=== PATIENT | female | born 1940 ===

== ENCOUNTER 2018-02-16 21:30 | Inpatient (IN) | payer MEDICARE, MEDICAID ==
--- NOTE | 2018-02-16 21:32 | C.PDOC ---
History Of Present Illness As per family, patient got short of breath while sitting on the couch. No chest pain or palpitations. Speaking in 5-6 word sentences. No f/c/n/v. Tolerating po. Time Seen by Provider: 02/16/18 21:31 History Per: Patient, EMS History/Exam Limitations: no limitations Onset/Duration Of Symptoms: Mins Current Symptoms Are (Timing): Still Present Initiating Event: Other Current Respiratory Medications: See Home Med List Severity: Severe Pain Scale Rating Of: 8 Associated Symptoms: denies: Fever, Chills Reports Recently: Treated By A Physician Recent travel outside of the [place]: No Additional History Per: Family Past Medical History Reviewed: Historical Data, Nursing Documentation, Vital Signs Family History: States: No Known Family Hx Review Of Systems Constitutional: Negative for: Fever, Chills Eyes: Negative for: Vision Change ENT: Negative for: Throat Pain Cardiovascular: Negative for: Chest Pain Respiratory: Positive for: Shortness of Breath Gastrointestinal: Negative for: Nausea, Vomiting Genitourinary: Negative for: Dysuria Musculoskeletal: Negative for: Back Pain Skin: Negative for: Rash Neurological: Negative for: Weakness Psych: Negative for: Anxiety Physical Exam - Physical Exam Appears: Non-toxic Skin: Warm, Dry Head: Atraumatic Eye(s): bilateral: Normal Inspection Oral Mucosa: Moist Neck: Supple Chest: Symmetrical Cardiovascular: Rhythm Regular Respiratory: Rales, Rhonchi Gastrointestinal/Abdominal: Soft, No Tenderness, No Distention Back: Normal Inspection Extremity: Normal ROM, Pedal Edema Extremity: Bilateral: Atraumatic, Normal ROM Pulses: Left Dorsalis Pedis: Normal, Right Dorsalis Pedis: Normal Neurological/Psych: Oriented x3, Normal Speech, Normal Cognition Gait: Steady ED Course And Treatment - Laboratory Results Result Diagrams: 02/16/18 21:44 02/16/18 22:26 ECG: Interpreted By Me, Viewed By Me ECG Rhythm: Sinus Rhythm (106), L BBB, Nonspecific Changes O2 Sat by Pulse Oximetry: 88 Pulse Ox Interpretation: Abnormal (placed on 100% NRM) - Radiology CXR: Interpreted by Me, Viewed By Me CXR Interpretation: Yes: Infiltrates (rll), Other (chf). No: Fracture, Cardiomegaly Critical Care Time - Critical Care Note Total Time (in mins): 30 Documented critical care: time excludes all time spent performing seperately billable procedures. Disposition Discussed With DrMarguerite: Gabriella Gonzalez Comment: acceptd the pt on his service and took over the care at 11:43 PM Doctor Will See Patient In The: Hospital Counseled Patient/Family Regarding: Studies Performed, Diagnosis - Disposition Referrals: Izzy Le MD [Medical Doctor] - Disposition: HOSPITALIZED Disposition Time: 21:32 Condition: GUARDED - POA Present On Arrival: Poor Glycemic Control - Clinical Impression Clinical Impression: Dyspnea, Pneumonia, Renal insufficiency Decision To Admit - Pt Status Changed To: Hospital Disposition Of: Inpatient - Admit Certification Admit to Inpatient:: After my assessment, the patient will require hospitalization for at least two midnights. This is because of the severity of symptoms shown, intensity of services needed, and/or the medical risk in this patient being treated as an outpatient. - InPatient: Physician Admission Certification: I certify that this patient requires 2 or more midnights of care for the following reason:: After my assessment, the patient will require hospitalization for at least two midnights. This is because of the severity of symptoms shown, intensity of services needed, and/or the medical risk in this patient being treated as an outpatient. - . Bed Request Type: Telemetry Admitting Physician: Gabriella Gonzalez Patient Diagnosis: Dyspnea, Pneumonia, Renal insufficiency
[2018-02-16] MEDS ORDERED: Albuterol-Ipratrop 3 mg / 0.5 (3 ml) UD ONE ×2 (21:35→22:09)
[2018-02-16] MEDS ORDERED: Piperacillin/Tazobact 3.375 gm 100 ML IVPB STA (21:49)
[2018-02-16 21:51] LABS: BASO # 0.1 K/uL (0.0-0.2); BASO % 0.5 % (0.0-2.0); EOS # 0.2 K/uL (0.0-0.7); EOS % 1.4 % (0.0-4.0); HEMOGLOBIN 12.2 g/dL (11.0-16.0); LYMPH # 6.5 K/uL (1.0-4.3); MEAN CELL VOLUME 83.4 fL (81.0-99.0); MEAN CORPUSCULAR HEMOGLOBIN 26.4 pg (27.0-31.0); MEAN CORPUSCULAR HGB CONC 31.6 g/dL (33.0-37.0); MEAN PLATELET VOLUME 9.8 fL (7.2-11.7); MONO % 6.3 % (0.0-10.0); NEUT # 8.4 K/uL (1.8-7.0); NEUT % 51.8 % (50.0-75.0); NRBC % 0.2 % (0.0-2.0); RBC 4.61 Mil/uL (3.80-5.20); RED CELL DISTRIBUTION WIDTH 14.3 % (11.5-14.5); WHITE BLOOD COUNT 16.3 K/uL (4.8-10.8)
[2018-02-16] MEDS ORDERED: Piperacillin/Tazobact 3.375 gm 100 ML IVPB ONE (21:59)
[2018-02-16 22:00] LABS: PROTHROMBIN TIME 10.6 SECONDS (9.7-12.2)
[2018-02-16] MEDS: Albuterol-Ipratrop 3 mg / 0.5 (3 ml) UD IH SCH (22:10)
[2018-02-16 22:12] LABS: ABG ALLEN TEST PO; ARTERIAL BLOOD GAS HCO3 22.6 mmol/L (21-28); ARTERIAL BLOOD GAS O2 SAT 98.6 % (95-98); ARTERIAL BLOOD GAS PCO2 42 mm/Hg (35-45); ARTERIAL BLOOD GAS PH 7.34 (7.35-7.45); ARTERIAL BLOOD GAS PO2 100 mm/Hg (80-100)
[2018-02-16 22:48] LABS: ALB/GLOB RATIO 1.2 (1.0-2.1); ALBUMIN 3.8 g/dL (3.5-5.0); CALCIUM 8.5 mg/dl (8.6-10.4)
[2018-02-16 22:57] LABS: TROPONIN I 0.047 ng/mL (0.00-0.120)
[2018-02-16] MEDS ORDERED: Iodixanol 320 MG/ML 100 ML BOTTLE IV ONE (23:00)
[2018-02-16 23:07] LABS: SQUAMOUS EPITHIAL < 1 /hpf (0-5); URINE BACTERIA OCC (<OCC); URINE BILIRUBIN NEGATIVE (NEGATIVE); URINE BLOOD 1+ (NEGATIVE); URINE CLARITY Clear (Clear); URINE COLOR Straw (YELLOW); URINE GLUCOSE (UA) 1+ mg/dL (Normal); URINE LEUKOCYTE ESTERASE TRACE Leu/uL (Negative); URINE PROTEIN 3+ mg/dL (NEGATIVE); URINE UROBILINOGEN NORMAL mg/dL (0.2-1.0)
[2018-02-16] MEDS ORDERED: Enoxaparin 40 mg Syringe SC STA (23:26)
[2018-02-16] MEDS ORDERED: Enoxaparin 80 mg Syringe ONE (23:40)
[2018-02-17] MEDS: Albuterol-Ipratrop 3 mg / 0.5 (3 ml) UD INH SCH ×4 (07:40→19:51)
--- NOTE | 2018-02-17 08:49 | RAD ---
Date of service: 02/16/2018 HISTORY: SOB COMPARISON: None available. FINDINGS: LUNGS: Patchy infiltrates identified in the right base, borderline at the left. PLEURA: Trace right pleural effusion identified. None is seen the left. No pneumothorax bilaterally. CARDIOVASCULAR: No aortic atherosclerotic calcification present. Cardiomegaly is identified. No definite pulmonary vascular congestion. OSSEOUS STRUCTURES: No significant abnormalities. VISUALIZED UPPER ABDOMEN: Normal. OTHER FINDINGS: None. IMPRESSION: Limited patchy infiltrate right base, potentially also the left. Trace right pleural effusion. Cardiomegaly. No pulmonary vascular congestion.
[2018-02-17] MEDS: MethylPREDNISolone 40 mg Vial IVP SCH ×3 (09:30→21:47)
[2018-02-17] MEDS ORDERED: Enoxaparin 40 mg Syringe SC SCH (10:00)
[2018-02-17] MEDS: Azithromycin 500 MG in Sodium Chloride 0.9% 250 ML IVPB SCH (10:43)
--- NOTE | 2018-02-17 11:22 | CT ---
Date of service: 02/16/2018 PROCEDURE: CT Chest without contrast HISTORY: sob COMPARISON: Portable chest 02/16/2018 9:44 p.m.. TECHNIQUE: Contiguous axial images were obtained through the chest without intravenous contrast enhancement. Sagittal and coronal reconstructions were performed. Radiation dose: Total exam DLP = 598.26 mGy-cm. This CT exam was performed using one or more of the following dose reduction techniques: Automated exposure control, adjustment of the mA and/or kV according to patient size, and/or use of iterative reconstruction technique. FINDINGS: LUNGS: Respiratory motion degrades quality of the examination. Septal markings appears somewhat increased bilaterally without definitive alveolitis. Limited bilateral basilar dependent atelectasis identified. Limited linear atelectasis or fibrosis left lower lobe. There is a 3.8 mm nodule is identified at the right lower lobe in image 68 series 3, noncalcified and solid appearing. No additional definitive nodule or mass. Central airways appear clear. MEDIASTINUM: Cardiomegaly is identified. No pericardial effusion. Calcific coronary artery atherosclerosis identified. Main pulmonary artery unremarkable. Mild pulmonary vascular congestion is suggested. [id number] mediastinal lymphadenopathy is appreciated, seen predominate in the paratracheal space including the midline inferior paratracheal space with a lymph node measuring 1.2 x 2.0 cm PLEURA: Mild right and minimal left pleural effusions are identified. BONES: Gross multifocal cervicothoracic spondylosis appreciate including numerous syndesmophytes at the inferior cervical spine and entire thoracic spine which could reflect ankylosing spondylosis or DISH. Potential limited anterior wedge compression fractures at T10 and T11, age indeterminate. No focal destructive bony lesion appreciable. UPPER ABDOMEN: Grossly unremarkable. OTHER FINDINGS: None. IMPRESSION: Findings likely reflect mild CHF including slight increase in septal markings in the bilateral lung calvo, mild right and trace left pleural effusions. Limited bilateral basilar dependent atelectasis. Limited linear atelectasis or fibrosis left lower lobe. 3.8 mm solitary nodule right lower lobe requires follow-up low-dose noncontrast chest CT in 12 months demonstrate stability if not already proven benign. Exuberant cervicothoracic spondylosis, possible ankylosing spondylosis or DISH. Preliminary report provided by [facility], chest CT without contrast 02/16/2018 11:14 p.m.. Findings reviewed and discussed with Nurse Garcia with written down and read back verification 02/17/2018 11:10 a.m..
[2018-02-17] MEDS: Pantoprazole 40 mg EC Tab PO SCH (13:32)
--- NOTE | 2018-02-17 20:46 | CP.PCM.HP ---
Past Patient History - Infectious Disease Hx of Infectious Diseases: None - Past Medical History & Family History Past Medical History?: Yes - Past Social History Smoking Status: Never Smoked - CARDIAC Hx Hypertension: Yes - HEENT Hx Blind: Yes (Left Eye) Hx Cataracts: Yes (Left) - RENAL Hx Kidney Stones: Yes Other/Comment: "kidney problems" as per daughter - ENDOCRINE/METABOLIC Hx Diabetes Mellitus Type 2: Yes - MUSCULOSKELETAL/RHEUMATOLOGICAL Hx Arthritis: Yes Hx Falls: No - PSYCHIATRIC Hx Substance Use: No - SURGICAL HISTORY Hx Surgeries: Yes Other/Comment: "ear sx" - ANESTHESIA Hx Anesthesia: Yes Hx Anesthesia Reactions: No Hx Malignant Hyperthermia: No Has any member of the family had a problem w/ anesthesia?: No Meds Allergies/Adverse Reactions: Allergies Allergy/AdvReac Type Severity Reaction Status Date / Time No Known Allergies Allergy Unverified 02/16/18 21:35 Physical Exam - Constitutional Appears: Well - Head Exam Head Exam: ATRAUMATIC, NORMAL INSPECTION, NORMOCEPHALIC - Eye Exam Eye Exam: EOMI, Normal appearance, PERRL Pupil Exam: NORMAL ACCOMODATION, PERRL - ENT Exam ENT Exam: Mucous Membranes Moist, Normal Exam - Neck Exam Neck exam: Positive for: Normal Inspection - Respiratory Exam Respiratory Exam: Decreased Breath Sounds - Cardiovascular Exam Cardiovascular Exam: REGULAR RHYTHM, +S1, +S2 - GI/Abdominal Exam GI & Abdominal Exam: Diminished Bowel Sounds, Soft - Rectal Exam Rectal Exam: Deferred Results - Vital Signs Recent Vital Signs: Last Vital Signs Temp 98.1 F 02/17/18 15:20 Pulse 85 02/17/18 20:36 Resp 20 02/17/18 15:20 BP 149/72 02/17/18 19:27 Pulse Ox 98 02/17/18 15:20 - Labs Result Diagrams: 02/16/18 21:44 02/16/18 22:26 Labs: Laboratory Results - last 24 hr 02/16/18 02/16/18 02/16/18 21:41 21:44 21:44 WBC 16.3 H RBC 4.61 Hgb 12.2 Hct 38.4 MCV 83.4 MCH 26.4 L MCHC 31.6 L RDW 14.3 Plt Count 271 MPV 9.8 Neut % (Auto) 51.8 Lymph % (Auto) 40.0 [place] % (Auto) 6.3 Eos % (Auto) 1.4 Baso % (Auto) 0.5 Neut # (Auto) 8.4 H Lymph # (Auto) 6.5 H [place] # (Auto) 1.0 H Eos # (Auto) 0.2 Baso # (Auto) 0.1 PT 10.6 INR 1.0 APTT 40 H D-Dimer, Quantitative Puncture Site pCO2 pO2 HCO3 ABG pH ABG Total CO2 ABG O2 Saturation ABG Base Excess Chi Test ABG Potassium A-a O2 Difference Respiratory Index Sodium Chloride Glucose Lactate FiO2 Potassium Carbon Dioxide Anion Gap BUN Creatinine Est GFR ( Amer) Est GFR (Non-Af Amer) POC Glucose (mg/dL) 185 H Random Glucose Calcium Total Bilirubin AST ALT Alkaline Phosphatase Troponin I NT-Pro-B Natriuret Pep Total Protein Albumin Globulin Albumin/Globulin Ratio Arterial Blood Potassium Urine Color Urine Clarity Urine pH Ur Specific [place] Urine Protein Urine Glucose (UA) Urine Ketones Urine Blood Urine Nitrate Urine Bilirubin Urine Urobilinogen Ur Leukocyte Esterase Urine WBC (Auto) Urine RBC (Auto) Ur Squamous Epith Cells Urine Bacteria 02/16/18 02/16/18 02/16/18 22:09 22:14 22:26 WBC RBC Hgb Hct MCV MCH MCHC RDW Plt Count MPV Neut % (Auto) Lymph % (Auto) [place] % (Auto) Eos % (Auto) Baso % (Auto) Neut # (Auto) Lymph # (Auto) [place] # (Auto) Eos # (Auto) Baso # (Auto) PT INR APTT D-Dimer, Quantitative 338 H Puncture Site Rr pCO2 42 pO2 100 HCO3 22.6 ABG pH 7.34 L ABG Total CO2 24.0 ABG O2 Saturation 98.6 H ABG Base Excess -3.0 L Chi Test Po ABG Potassium 3.4 L A-a O2 Difference 561.0 Respiratory Index 5.6 Sodium 140.0 136 Chloride 111.0 H 106 Glucose 174 H Lactate 0.7 FiO2 100.0 Potassium 4.0 Carbon Dioxide 22 Anion Gap 13 BUN 30 H Creatinine 2.5 H Est GFR ( Amer) 23 Est GFR (Non-Af Amer) 19 POC Glucose (mg/dL) Random Glucose 188 H Calcium 8.5 L Total Bilirubin 0.2 AST 33 ALT 35 Alkaline Phosphatase 106 Troponin I 0.0470 NT-Pro-B Natriuret Pep 2390 H Total Protein 7.1 Albumin 3.8 Globulin 3.3 Albumin/Globulin Ratio 1.2 Arterial Blood Potassium 3.4 L Urine Color Urine Clarity Urine pH Ur Specific [place] Urine Protein Urine Glucose (UA) Urine Ketones Urine Blood Urine Nitrate Urine Bilirubin Urine Urobilinogen Ur Leukocyte Esterase Urine WBC (Auto) Urine RBC (Auto) Ur Squamous Epith Cells Urine Bacteria 02/16/18 02/17/18 23:58 16:50 WBC RBC Hgb Hct MCV MCH MCHC RDW Plt Count MPV Neut % (Auto) Lymph % (Auto) [place] % (Auto) Eos % (Auto) Baso % (Auto) Neut # (Auto) Lymph # (Auto) [place] # (Auto) Eos # (Auto) Baso # (Auto) PT INR APTT D-Dimer, Quantitative Puncture Site pCO2 pO2 HCO3 ABG pH ABG Total CO2 ABG O2 Saturation ABG Base Excess Chi Test ABG Potassium A-a O2 Difference Respiratory Index Sodium Chloride Glucose Lactate FiO2 Potassium Carbon Dioxide Anion Gap BUN Creatinine Est GFR ( Amer) Est GFR (Non-Af Amer) POC Glucose (mg/dL) Random Glucose Calcium Total Bilirubin AST ALT Alkaline Phosphatase Troponin I 0.0590 NT-Pro-B Natriuret Pep Total Protein Albumin Globulin Albumin/Globulin Ratio Arterial Blood Potassium Urine Color Straw Urine Clarity Clear Urine pH 6.0 Ur Specific [place] 1.008 Urine Protein 3+ H Urine Glucose (UA) 1+ Urine Ketones Negative Urine Blood 1+ H Urine Nitrate Negative Urine Bilirubin Negative Urine Urobilinogen Normal Ur Leukocyte Esterase Trace Urine WBC (Auto) 4 Urine RBC (Auto) 5 H Ur Squamous Epith Cells < 1 Urine Bacteria Occ H
[2018-02-17] MEDS ORDERED: (Novolog) Insulin Aspart, Recombinant 100 u/ml 10 ml vial SC STA (21:19)
[2018-02-17] MEDS: (Lantus) Insulin Glargine, Recombinant SC SCH (21:45)
[2018-02-17] MEDS: (Novolog) Insulin Aspart, Recombinant 100 u/ml 10 ml vial SC SCH (21:51)
--- NOTE | 2018-02-17 22:07 | CON ---
DATE: 02/17/2018 CARDIOLOGY CONSULTATION REASON FOR CONSULTATION: Shortness of breath and productive cough. HISTORY OF PRESENT ILLNESS: The history was obtained from the patient's daughter who was sitting at the bedside. The patient is a 77-year-old female who has no significant past medical history except for diabetes mellitus and is being followed by group of physicians locally in [place]. No known prior cardiac histories. The patient presents because of shortness of breath and productive cough as well as nausea. The patient also noted significant lower extremity swelling and pain. The patient denies any retrosternal chest pain. SOCIAL HISTORY: The patient is nonsmoker. She lives by herself. MEDICATIONS: Zithromax 500 mg intravenously daily, Rocephin 1 g intravenously daily, albuterol inhaler every 4 hours p.r.n., Lasix 40 mg intravenously twice a day, Lovenox 40 mg subcutaneously daily, Singulair 10 mg once a day, Solu-Medrol 40 mg intravenously every 8 hours, and Protonix 40 mg p.o. daily. PHYSICAL EXAMINATION: GENERAL: The patient is an elderly female who does not appear to be in acute distress. VITAL SIGNS: Blood pressure 142/70, heart rate 86, temperature 98.6, and respirations 20. HEENT: Normocephalic. CHEST: Absent breath sounds over the bases with bilateral rhonchi. HEART: S1 and S2 are regular. ABDOMEN: Soft. EXTREMITIES: 2+ pitting edema. No calf tenderness. LABORATORY DATA: Today's SMA-7: Sodium 136, potassium 4, chloride 106, CO2 of 22, glucose 188, BUN 30, creatinine 2.5. ProBNP 2390. D-Dimer is 338. CBC: WBC 16.3, hemoglobin 12.2, hematocrit 38.4, and platelet count 271,000. Chest CT scan revealed findings likely reflected of mild CHF, a 3.8-mm solitary nodule in right upper lobe, possible ankylosing spondylosis. EKG revealed sinus tachycardia at the rate of 106, left bundle branch block. Chest x-ray revealed cardiomegaly with bilateral lower lobe infiltrate, possible right lower lobe consolidation, and mild CHF. One set of troponin 0.047. ASSESSMENT: 1. Exacerbation of congestive heart failure. 2. Consider bilateral pneumonia. 3. Chronic renal insufficiency. 4. Rule out deep vein thrombosis of either lower extremities. 5. Uncontrolled diabetes mellitus. RECOMMENDATIONS: Continue current IV Rocephin and IV Zithromax. Continue Lasix 40 mg intravenously twice a day, Solu-Medrol 40 mg intravenously every 8 hours. Start aspirin 81 mg once a day. Obtain one more set of troponin. Repeat 12-lead EKG and schedule the patient for echocardiogram. Obtain venous Doppler of the lower extremities. Start subcutaneous heparin 5000 units every 8 hours. Ryan Vidal MD
[2018-02-18] MEDS: Albuterol-Ipratrop 3 mg / 0.5 (3 ml) UD INH SCH ×6 (00:25→20:46)
[2018-02-18] MEDS ORDERED: (Novolin R) Insulin Human Regular 100 units/ml vial SC ONE (02:25)
[2018-02-18] MEDS: MethylPREDNISolone 40 mg Vial IVP SCH ×3 (05:43→21:44)
[2018-02-18] MEDS ORDERED: (Novolog) Insulin Aspart, Recombinant 100 u/ml 10 ml vial SC STA (06:41)
[2018-02-18 07:26] LABS: HEMOGLOBIN 10.8 g/dL (11.0-16.0); MEAN CORPUSCULAR HEMOGLOBIN 26.9 pg (27.0-31.0); MEAN CORPUSCULAR HGB CONC 32.4 g/dL (33.0-37.0); RBC 4.01 Mil/uL (3.80-5.20); RED CELL DISTRIBUTION WIDTH 14.1 % (11.5-14.5); WHITE BLOOD COUNT 11.9 K/uL (4.8-10.8)
[2018-02-18] MEDS: (Novolog) Insulin Aspart, Recombinant 100 u/ml 10 ml vial SC SCH ×4 (07:30→21:45)
[2018-02-18 08:14] LABS: ALBUMIN 3.3 g/dL (3.5-5.0); CALCIUM 8.2 mg/dl (8.6-10.4)
[2018-02-18] MEDS: Azithromycin 500 MG in Sodium Chloride 0.9% 250 ML IVPB SCH (09:51)
[2018-02-18] MEDS: Pantoprazole 40 mg EC Tab PO SCH (09:53)
[2018-02-18] MEDS: (Lantus) Insulin Glargine, Recombinant SC SCH ×2 (09:54→21:45)
--- NOTE | 2018-02-18 17:52 | CARD ---
APPROVED REPORT Date of service: 02/16/2018 EKG Measurement Heart [id number] <Conclusion> Sinus tachycardia Left axis deviation Left bundle branch block Abnormal ECG
--- NOTE | 2018-02-18 18:03 | PN ---
DATE: 02/18/2018 SUBJECTIVE: The patient is still mildly short or breath. Denied any chest pain. PHYSICAL EXAMINATION: VITAL SIGNS: Blood pressure 118/53, heart rate 103, temperature 97.7, respirations 20. HEENT: Normocephalic. CHEST: Absent breath sounds over the bases. HEART: S1 and S2, regular. ABDOMEN: Soft. EXTREMITIES: 1+ pitting edema. LABORATORY DATA: Today's BUN and creatinine are 38 and 2.8 respectively, glucose 142. Today's hemoglobin and hematocrit, 10.8 and 33.2. White count 11.9 and platelet count 228,000. EKG reveals sinus tachycardia with left bundle branch block. Two sets of troponins are not elevated. ASSESSMENT: 1. Suspect congestive heart failure. 2. Bilateral pneumonia. 3. Chronic renal insufficiency. RECOMMENDATIONS: Continue current intravenous Celexa and intravenous Rocephin. Continue Cozaar at 50 mg once a day, Crestor at 5 mg once a day. Continue heparin 5000 units every 8 hours, Lasix 40 mg intravenously twice a day, Norvasc at 10 mg once a day, Solu-Medrol 40 mg intravenously every 8 hours. I will review the echocardiographic study performed today. Ryan Vidal MD
--- NOTE | 2018-02-18 19:37 | CARD ---
APPROVED REPORT Date of service: 02/17/2018 EKG Measurement Heart [id number] <Conclusion> Sinus tachycardia Nonspecific intraventricular block T wave abnormality, consider lateral ischemia Abnormal ECG
--- NOTE | 2018-02-18 20:19 | CARD ---
APPROVED REPORT Date of service: 02/18/2018 EXAM: Two-dimensional and M-mode echocardiogram with Doppler and color Doppler. INDICATION Dyspnea Congestive Heart Failure RISK FACTORS Hypertension Diabetes 2D DIMENSIONS IVSd1.4 (0.7-1.1cm)Aortic Root (2D)2.4 (2.0-3.7cm) LVDd3.8 (3.9-5.9cm)PWd1.2 (0.7-1.1cm) LA Gcfaae83 (18-58mL)LVDs2.4 (2.5-4.0cm) FS (%) 37.6 %LVEF (%)68.5 (>50%) LVEF (Rossi's)62.21 %IVC0.00 cm M-Mode DIMENSIONS Left Atrium (MM)4.16 (2.5-4.0cm)IVSd0.73 (0.7-1.1cm) Aortic Root2.64 (2.2-3.7cm)LVDd5.13 (4.0-5.6cm) Aortic Cusp Exc.1.53 (1.5-2.0cm)PWd0.79 (0.7-1.1cm) FS (%) 47 %LVDs2.70 (2.0-3.8cm) LVEF (%)63 (>50%) Aortic Valve LVOT Peak Ddcrzozx873.8cm/sLVOT VTI27.49cm Mitral Valve MV E Hoxdcbcb227.3cm/sMV E Peak Gr.14mmHgMV A Iononttm614.3cm/s MV E Mean Gr.7mmHgE/A ratio0.9 TDI Lateral E' Peak V7.19cm/sMedial E' Peak V4.09cm/sE/Lateral E'18.0 E/Medial E'31.6 Tricuspid Valve TR Peak Jlwgmixy890hb/sTR Peak Gr.46rzWgDFTJ19oiSv LEFT VENTRICLE The left ventricle is normal size. There is moderate concentric left ventricular hypertrophy. The left ventricular function is normal. The left ventricular ejection fraction is within the normal range. 62% No regional wall motion abnormalities noted. The left ventricular diastolic function is incoclusive. No left ventricle thrombus noted on this study. There is no ventricular septal defect visualized. There is no left ventricular aneurysm. There is no mass noted in the left ventricle. RIGHT VENTRICLE The right ventricle is normal size. There is normal right ventricular wall thickness. The right ventricular systolic function is normal. ATRIA The left atrium size is normal. The right atrium size is normal. The interatrial septum is intact with no evidence for an atrial septal defect. AORTIC VALVE The aortic valve is normal in structure and function. No aortic regurgitation is present. There is no aortic valvular stenosis. There is no aortic valvular vegetation. MITRAL VALVE The mitral valve is normal in structure and function. Moderatw annular calcification. There is no evidence of mitral valve prolapse. There is no mitral valve stenosis. There is no mitral valve regurgitation noted. TRICUSPID VALVE The tricuspid valve is normal in structure and function. There is no tricuspid valve regurgitation noted. There is mild tricuspid valve prolapse or vegetation. Estimated peak pulmonary artery pressure is 65 mm HG. There is no tricuspid valve stenosis. PULMONIC VALVE The pulmonary valve is normal in structure and function. There is no pulmonic valvular regurgitation. There is no pulmonic valvular stenosis. GREAT VESSELS The aortic root is normal in size. The ascending aorta is normal in size. The pulmonary artery is normal. The IVC is dilated and collapses < 50% with inspiration. PERICARDIAL EFFUSION The pericardium appears normal. There is no pleural effusion. <Conclusion> The left ventricular function is normal. The left ventricular ejection fraction is within the normal range. 62% There is moderate concentric left ventricular hypertrophy. Severe pulmonary HTN. Otherwise normal Doppler.
--- NOTE | 2018-02-18 21:05 | CP.PCM.PN ---
Subjective - Date & Time of Evaluation Date of Evaluation: 02/18/18 Time of Evaluation: 12:00 - Subjective Subjective: clinically same Objective - Vital Signs/Intake and Output Vital Signs (last 24 hours): Temp Pulse Resp BP Pulse Ox 97.3 F L 92 H 20 130/78 97 02/18/18 15:40 02/18/18 15:46 02/18/18 15:40 02/18/18 17:49 02/18/18 15:40 Intake and Output: 02/18/18 02/19/18 18:59 06:59 Intake Total 450 Balance 450 - Medications Medications: Current Medications Albuterol/Ipratropium (Duoneb 3 Mg/0.5 Mg (3 Ml) Ud) 3 ml INH RQ4 [facility] Last Admin: 02/18/18 20:46 Dose: 3 ml Amlodipine Besylate (Norvasc) 10 mg PO DAILY [facility] Last Admin: 02/18/18 09:52 Dose: 10 mg Ergocalciferol (Drisdol 50,000 Intl Units Cap) 1 cap PO QWK [facility] Furosemide (Lasix) 40 mg IVP BID [facility] Last Admin: 02/18/18 17:49 Dose: 40 mg Glimepiride (Amaryl) 4 mg PO BID [facility] Last Admin: 02/18/18 17:50 Dose: 4 mg Heparin Sodium (Porcine) (Heparin) 5,000 units SC Q8 [facility] Last Admin: 02/18/18 13:39 Dose: 5,000 units Hydrochlorothiazide (Microzide) 12.5 mg PO DAILY [facility] Last Admin: 02/18/18 09:52 Dose: 12.5 mg Azithromycin 500 mg/ Sodium (Chloride) 250 mls @ 250 mls/hr IVPB DAILY [facility]; Protocol Last Admin: 02/18/18 09:51 Dose: 250 mls/hr Ceftriaxone Sodium 1 gm/ (Sodium Chloride) 100 mls @ 100 mls/hr IVPB Q24H [facility]; Protocol Last Admin: 02/18/18 12:24 Dose: 100 mls/hr Insulin Aspart (Novolog) 0 unit SC ACHS [facility]; Protocol Last Admin: 02/18/18 17:00 Dose: 4 unit Insulin Glargine (Lantus) 25 unit SC DAILY [facility] Last Admin: 02/18/18 09:54 Dose: 25 units Insulin Glargine (Lantus) 60 unit SC [facility] Last Admin: 02/17/18 21:45 Dose: 60 units Losartan Potassium (Cozaar) 50 mg PO DAILY [facility] Last Admin: 02/18/18 09:52 Dose: 50 mg Methylprednisolone (Solu-Medrol) 40 mg IVP Q8 [facility] Last Admin: 02/18/18 13:38 Dose: 40 mg Montelukast Sodium (Singulair) 10 mg PO [facility] Last Admin: 02/17/18 21:46 Dose: 10 mg Pantoprazole Sodium (Protonix Ec Tab) 40 mg PO DAILY [facility] Last Admin: 02/18/18 09:53 Dose: 40 mg Pneumococcal Polyvalent Vaccine (Pneumovax 23 Vaccine) 0.5 ml IM .ONCE ONE Stop: 02/19/18 11:01 Rosuvastatin Calcium (Crestor) 5 mg PO [facility] Last Admin: 02/17/18 21:46 Dose: 5 mg - Labs Labs: 02/18/18 07:17 02/18/18 07:17 PT 10.6 SECONDS (9.7-12.2) 02/16/18 21:44 INR 1.0 02/16/18 21:44 APTT 39 SECONDS (21-34) H 02/18/18 07:17 - Constitutional Appears: Well - Head Exam Head Exam: ATRAUMATIC, NORMAL INSPECTION, NORMOCEPHALIC - Eye Exam Eye Exam: EOMI, Normal appearance, PERRL Pupil Exam: NORMAL ACCOMODATION, PERRL - ENT Exam ENT Exam: Mucous Membranes Moist, Normal Exam - Neck Exam Neck Exam: Full ROM, Normal Inspection. absent: Lymphadenopathy - Respiratory Exam Respiratory Exam: Decreased Breath Sounds - Cardiovascular Exam Cardiovascular Exam: REGULAR RHYTHM, +S1, +S2 - GI/Abdominal Exam GI & Abdominal Exam: Soft, Diminished Bowel Sounds - Rectal Exam Rectal Exam: Deferred
[2018-02-19] MEDS: Albuterol-Ipratrop 3 mg / 0.5 (3 ml) UD INH SCH ×6 (00:35→19:37)
[2018-02-19] MEDS: MethylPREDNISolone 40 mg Vial IVP SCH ×3 (05:27→21:45)
[2018-02-19] MEDS: (Novolog) Insulin Aspart, Recombinant 100 u/ml 10 ml vial SC SCH ×4 (08:17→21:46)
[2018-02-19] MEDS: (Lantus) Insulin Glargine, Recombinant SC SCH ×2 (09:53→21:46)
[2018-02-19] MEDS: Pantoprazole 40 mg EC Tab PO SCH (09:54)
[2018-02-19] MEDS: Azithromycin 500 MG in Sodium Chloride 0.9% 250 ML IVPB SCH (09:56)
[2018-02-19] MEDS ORDERED: Pneumococcal 23-Valent Vaccine IM ONE (11:00)
[2018-02-19] MEDS ORDERED: (Novolog) Insulin Aspart, Recombinant 100 u/ml 10 ml vial SC ONE (12:17)
--- NOTE | 2018-02-19 14:36 | VASCLAB ---
Date of service: 02/18/2018 PROCEDURE: Lower Extremity Venous Duplex Exam. HISTORY: r/o DVT PRIORS: None. TECHNIQUE: Bilateral common femoral, femoral, popliteal and posterior tibial, peroneal and great saphenous veins were evaluated. Flow was assessed with color Doppler, compressibility, assessment of phasic flow and augmentation response. Report prepared by Adriel Pickett, BS, RVT FINDINGS: RIGHT: 1. Common Femoral Vein: 1.1. Compressibility - Fully compressible: Thrombus - None : Flow - Phasic: Augmentation -Normal: Reflux - None. 2. Femoral Vein: 2.1. Compressibility - Fully compressible: Thrombus - None : Flow - Phasic: Augmentation -Normal: Reflux - None. 3. Popliteal Vein: 3.1. Compressibility - Fully compressible: Thrombus - None : Flow - Phasic: Augmentation -Normal: Reflux - None. 4. Posterior Tibial Vein: 4.1. Compressibility - Fully compressible: Thrombus - None: Flow - Phasic: Augmentation -Normal: Reflux - None. 5. Peroneal Vein: 5.1. Compressibility - Fully compressible: Thrombus - None: Flow - Phasic: Augmentation -Normal: Reflux - None. 6. Great Saphenous Vein: 6.1. Compressibility - Fully compressible: Thrombus - None: Flow - Phasic: Augmentation - Normal: Reflux - None. LEFT: 1. Common Femoral Vein: 1.1. Compressibility - Fully compressible: Thrombus - None: Flow - Phasic: Augmentation -Normal: Reflux - None. 2. Femoral Vein: 2.1. Compressibility - Fully compressible: Thrombus - None: Flow - Phasic: Augmentation -Normal: Reflux - None. 3. Popliteal Vein: 3.1. Compressibility - Fully compressible: Thrombus - None : Flow - Phasic: Augmentation -Normal: Reflux - None. 4. Posterior Tibial Vein: 4.1. Compressibility - Fully compressible: Thrombus - None: Flow - Phasic: Augmentation -Normal: Reflux - None. 5. Peroneal Vein: 5.1. Compressibility - Fully compressible: Thrombus - None: Flow - Phasic: Augmentation -Normal: Reflux - None. 6. Great Saphenous Vein: 6.1. Compressibility - Fully compressible: Thrombus - None: Flow - Phasic: Augmentation - Normal: Reflux - None. OTHER FINDINGS: Right: None significant. Left: None significant. IMPRESSION: Right: No evidence of deep or superficial vein thrombosis of the right lower extremity. Normal valve function noted of the right side. Left: No evidence of deep or superficial vein thrombosis of the left lower extremity. Normal valve function noted of the left side.
--- NOTE | 2018-02-19 15:19 | CP.PCM.PN ---
Subjective - Date & Time of Evaluation Date of Evaluation: 02/19/18 Time of Evaluation: 11:00 - Subjective Subjective: clinically same Objective - Vital Signs/Intake and Output Vital Signs (last 24 hours): Temp Pulse Resp BP Pulse Ox 98.5 F 105 H 20 126/67 98 02/19/18 07:00 02/19/18 07:40 02/19/18 07:00 02/19/18 09:55 02/19/18 07:00 Intake and Output: 02/19/18 02/19/18 06:59 18:59 Intake Total 100 Balance 100 - Medications Medications: Current Medications Albuterol/Ipratropium (Duoneb 3 Mg/0.5 Mg (3 Ml) Ud) 3 ml INH RQ4 [facility] Last Admin: 02/19/18 14:04 Dose: Not Given Amlodipine Besylate (Norvasc) 10 mg PO DAILY [facility] Last Admin: 02/19/18 09:54 Dose: 10 mg Ergocalciferol (Drisdol 50,000 Intl Units Cap) 1 cap PO QWK [facility] Furosemide (Lasix) 40 mg IVP BID [facility] Last Admin: 02/19/18 09:55 Dose: 40 mg Glimepiride (Amaryl) 4 mg PO BID [facility] Last Admin: 02/19/18 09:55 Dose: 4 mg Heparin Sodium (Porcine) (Heparin) 5,000 units SC Q8 [facility] Last Admin: 02/19/18 05:27 Dose: 5,000 units Hydrochlorothiazide (Microzide) 12.5 mg PO DAILY [facility] Last Admin: 02/19/18 09:54 Dose: 12.5 mg Azithromycin 500 mg/ Sodium (Chloride) 250 mls @ 250 mls/hr IVPB DAILY [facility]; Protocol Last Admin: 02/19/18 09:56 Dose: 250 mls/hr Ceftriaxone Sodium 1 gm/ (Sodium Chloride) 100 mls @ 100 mls/hr IVPB Q24H [facility]; Protocol Last Admin: 02/19/18 11:21 Dose: 100 mls/hr Insulin Aspart (Novolog) 0 unit SC ACHS [facility]; Protocol Last Admin: 02/19/18 12:30 Dose: Not Given Insulin Glargine (Lantus) 25 unit SC DAILY [facility] Last Admin: 02/19/18 09:53 Dose: 25 units Insulin Glargine (Lantus) 60 unit SC HS [facility] Last Admin: 02/18/18 21:45 Dose: 60 units Losartan Potassium (Cozaar) 50 mg PO DAILY [facility] Last Admin: 02/19/18 09:54 Dose: 50 mg Methylprednisolone (Solu-Medrol) 40 mg IVP Q8 [facility] Last Admin: 02/19/18 14:21 Dose: 40 mg Montelukast Sodium (Singulair) 10 mg PO [facility] Last Admin: 02/18/18 21:46 Dose: 10 mg Pantoprazole Sodium (Protonix Ec Tab) 40 mg PO DAILY [facility] Last Admin: 02/19/18 09:54 Dose: 40 mg Rosuvastatin Calcium (Crestor) 5 mg PO [facility] Last Admin: 02/18/18 21:46 Dose: 5 mg - Labs Labs: 02/18/18 07:17 02/18/18 07:17 PT 10.6 SECONDS (9.7-12.2) 02/16/18 21:44 INR 1.0 02/16/18 21:44 APTT 39 SECONDS (21-34) H 02/18/18 07:17 - Constitutional Appears: Well - Head Exam Head Exam: ATRAUMATIC, NORMAL INSPECTION, NORMOCEPHALIC - Eye Exam Eye Exam: EOMI, Normal appearance, PERRL Pupil Exam: NORMAL ACCOMODATION, PERRL - ENT Exam ENT Exam: Mucous Membranes Moist, Normal Exam - Neck Exam Neck Exam: Full ROM, Normal Inspection. absent: Lymphadenopathy - Respiratory Exam Respiratory Exam: Decreased Breath Sounds - Cardiovascular Exam Cardiovascular Exam: REGULAR RHYTHM, +S1, +S2 - GI/Abdominal Exam GI & Abdominal Exam: Soft, Diminished Bowel Sounds - Rectal Exam Rectal Exam: Deferred
--- NOTE | 2018-02-19 19:27 | PN ---
DATE: 02/19/2018 SUBJECTIVE: The patient's shortness of breath is improved. She is still experiencing productive cough. PHYSICAL EXAMINATION: VITAL SIGNS: Blood pressure 126/67, heart rate 105, temperature 98.5, respirations 20. HEENT: Normocephalic. CHEST: Absent breath sounds over the bases. HEART: S1 and S2 regular. ABDOMEN: Soft. EXTREMITIES: 1+ pitting edema. LABORATORY DATA: Venous Doppler of lower extremity was performed, report is still pending. Echocardiographic study revealed normal ejection fraction, moderate concentric LVH, with severe pulmonary hypertension. ASSESSMENT: 1. Pneumonia. 2. Severe pulmonary hypertension. 3. Systemic hypertension. 4. Diabetes mellitus. 5. Diastolic heart failure. RECOMMENDATIONS: Continue current intravenous Rocephin and intravenous Zithromax. Continue Cozaar at 50 mg once a day, Crestor at 5 mg once a day, subcutaneous heparin 5000 units every 8 hours, Lasix 40 mg intravenously twice a day, hydrochlorothiazide 12.5 mg once a day, Norvasc at 10 mg once a day, Solu-Medrol 40 mg intravenously every 8 hours. Ryan Vidal MD
[2018-02-20] MEDS: Albuterol-Ipratrop 3 mg / 0.5 (3 ml) UD INH SCH ×6 (01:26→19:52)
[2018-02-20] MEDS: MethylPREDNISolone 40 mg Vial IVP SCH ×3 (05:30→21:39)
[2018-02-20] MEDS: (Novolog) Insulin Aspart, Recombinant 100 u/ml 10 ml vial SC SCH ×4 (08:06→22:00)
[2018-02-20] MEDS: Pantoprazole 40 mg EC Tab PO SCH (09:31)
[2018-02-20] MEDS: (Lantus) Insulin Glargine, Recombinant SC SCH ×2 (09:32→21:39)
[2018-02-20] MEDS: Azithromycin 500 MG in Sodium Chloride 0.9% 250 ML IVPB SCH (09:33)
--- NOTE | 2018-02-20 16:55 | PN ---
DATE: 02/20/2018 SUBJECTIVE: The patient has been experiencing productive cough and leg swelling. PHYSICAL EXAMINATION: VITAL SIGNS: Blood pressure 135/71, heart rate 93, temperature 99.4, respirations 20. HEENT: Normocephalic. CHEST: Bibasilar rhonchi. HEART: S1 and S2 regular. ABDOMEN: Soft. EXTREMITIES: 2+ pitting edema. ASSESSMENT: 1. Pneumonia. 2. Diastolic left ventricular dysfunction. 3. Severe pulmonary hypertension. 4. Systemic hypertension. 5. Uncontrolled diabetes mellitus. RECOMMENDATIONS: Continue current intravenous Rocephin and intravenous Zithromax. Continue Cozaar at 50 mg once a day, Crestor 5 mg once a day, subcutaneous heparin 5000 units every 8 hours, Lasix at 40 mg intravenously twice a day, Solu-Medrol 40 mg intravenously every 8 hours. Ryan Vidal MD
--- NOTE | 2018-02-20 21:33 | CP.PCM.PN ---
Subjective - Date & Time of Evaluation Date of Evaluation: 02/20/18 Time of Evaluation: 09:30 - Subjective Subjective: clinically same Objective - Vital Signs/Intake and Output Vital Signs (last 24 hours): Temp Pulse Resp BP Pulse Ox 97.3 F L 70 20 111/62 97 02/20/18 17:05 02/20/18 17:05 02/20/18 17:05 02/20/18 17:44 02/20/18 17:05 Intake and Output: 02/20/18 02/21/18 18:59 06:59 Intake Total 800 Balance 800 - Medications Medications: Current Medications Albuterol/Ipratropium (Duoneb 3 Mg/0.5 Mg (3 Ml) Ud) 3 ml INH RQ4 [facility] Last Admin: 02/20/18 19:52 Dose: 3 ml Amlodipine Besylate (Norvasc) 10 mg PO DAILY [facility] Last Admin: 02/20/18 09:31 Dose: 10 mg Ergocalciferol (Drisdol 50,000 Intl Units Cap) 1 cap PO QWK [facility] Furosemide (Lasix) 40 mg IVP BID [facility] Last Admin: 02/20/18 17:44 Dose: 40 mg Glimepiride (Amaryl) 4 mg PO BID [facility] Last Admin: 02/20/18 17:44 Dose: 4 mg Heparin Sodium (Porcine) (Heparin) 5,000 units SC Q8 [facility] Last Admin: 02/20/18 13:11 Dose: 5,000 units Hydrochlorothiazide (Microzide) 12.5 mg PO DAILY [facility] Last Admin: 02/20/18 09:30 Dose: 12.5 mg Azithromycin 500 mg/ Sodium (Chloride) 250 mls @ 250 mls/hr IVPB DAILY [facility]; Protocol Last Admin: 02/20/18 09:33 Dose: 250 mls/hr Ceftriaxone Sodium 1 gm/ (Sodium Chloride) 100 mls @ 100 mls/hr IVPB Q24H [facility]; Protocol Last Admin: 02/20/18 14:02 Dose: 100 mls/hr Insulin Aspart (Novolog) 0 unit SC ACHS [facility]; Protocol Last Admin: 02/20/18 17:42 Dose: 3 unit Insulin Glargine (Lantus) 25 unit SC DAILY [facility] Last Admin: 02/20/18 09:32 Dose: 25 units Insulin Glargine (Lantus) 60 unit SC HS [facility] Last Admin: 02/19/18 21:46 Dose: 60 units Losartan Potassium (Cozaar) 50 mg PO DAILY [facility] Last Admin: 02/20/18 09:30 Dose: 50 mg Methylprednisolone (Solu-Medrol) 40 mg IVP Q8 [facility] Last Admin: 02/20/18 13:07 Dose: 40 mg Montelukast Sodium (Singulair) 10 mg PO HS [facility] Last Admin: 02/19/18 21:45 Dose: 10 mg Pantoprazole Sodium (Protonix Ec Tab) 40 mg PO DAILY [facility] Last Admin: 02/20/18 09:31 Dose: 40 mg Rosuvastatin Calcium (Crestor) 5 mg PO HS [facility] Last Admin: 02/19/18 21:45 Dose: 5 mg - Labs Labs: 02/18/18 07:17 02/18/18 07:17 PT 10.6 SECONDS (9.7-12.2) 02/16/18 21:44 INR 1.0 02/16/18 21:44 APTT 39 SECONDS (21-34) H 02/18/18 07:17
[2018-02-21] MEDS: Albuterol-Ipratrop 3 mg / 0.5 (3 ml) UD INH SCH ×6 (00:55→20:10)
[2018-02-21] MEDS: MethylPREDNISolone 40 mg Vial IVP SCH ×3 (06:07→21:43)
[2018-02-21] MEDS: (Novolog) Insulin Aspart, Recombinant 100 u/ml 10 ml vial SC SCH ×5 (08:30→21:33)
[2018-02-21] MEDS: Azithromycin 500 MG in Sodium Chloride 0.9% 250 ML IVPB SCH (09:31)
[2018-02-21] MEDS: (Lantus) Insulin Glargine, Recombinant SC SCH ×2 (09:32→21:43)
[2018-02-21] MEDS: Pantoprazole 40 mg EC Tab PO SCH (09:32)
[2018-02-21 10:58] LABS: LYMPH % 8.8 % (20.0-40.0); MEAN CELL VOLUME 80.9 fL (81.0-99.0); MEAN CORPUSCULAR HEMOGLOBIN 26.9 pg (27.0-31.0); MEAN CORPUSCULAR HGB CONC 33.2 g/dL (33.0-37.0); MEAN PLATELET VOLUME 10.5 fL (7.2-11.7); MONO # 0.5 K/uL (0.0-0.8); NEUT # 9.8 K/uL (1.8-7.0); NEUT % 87.2 % (50.0-75.0); PLATELET COUNT 264 K/uL (130-400); RBC 4.45 Mil/uL (3.80-5.20); RED CELL DISTRIBUTION WIDTH 13.8 % (11.5-14.5); WHITE BLOOD COUNT 11.3 K/uL (4.8-10.8)
[2018-02-21 11:12] LABS: CALCIUM 7.6 mg/dl (8.6-10.4)
[2018-02-21 11:19] LABS: LYMPHOCYTE 6 % (20-40); MONOCYTE 6 % (0-10); NEUTROPHIL 88 % (50-75); PLATELET ESTIMATE NORMAL (NORMAL); TOTAL CELLS COUNTED 100
[2018-02-21 11:20] LABS: ANISOCYTOSIS SLIGHT; GIANT PLATELETS PRESENT; HYPOCHROMIC SLIGHT; LARGE PLATELETS PRESENT
--- NOTE | 2018-02-21 19:43 | PN ---
DATE: 02/21/2018 SUBJECTIVE: The patient is experiencing productive cough and leg swelling. She denies any substernal chest pain. PHYSICAL EXAMINATION: VITAL SIGNS: Blood pressure 168/73, heart rate 97, temperature 98.3, and respirations 20. HEENT: Normocephalic. CHEST: Bibasilar rhonchi. HEART: S1 and S2 regular. ABDOMEN: Soft. EXTREMITIES: 2+ pitting edema. LABORATORY DATA: Today's SMA-7; sodium 130, potassium 3.2, chloride 93, CO2 22, glucose 162, BUN 68, creatinine 3.2. Today's hemoglobin and hematocrit are 12 and 36. White count 11.3, platelet count 264,000. ASSESSMENT: 1. Pneumonia. 2. Diastolic heart failure. 3. Severe pulmonary hypertension. 4. Systemic hypertension. 5. Hypokalemia. 6. Worsening renal insufficiency. RECOMMENDATIONS: Continue current IV Rocephin and IV Zithromax. Hold Cozaar for now. Continue Crestor at 5 mg once a day. Continue hydrochlorothiazide 12.5 mg once a day, Norvasc at 10 mg once a day. Discontinue IV Lasix. The patient received 20 mEq of IVPB potassium today. Continue Solu-Medrol 40 mg intravenously every 12 hours. Follow up BMP in a.m. Ryan Vidal MD
--- NOTE | 2018-02-21 22:21 | CP.PCM.PN ---
Subjective - Date & Time of Evaluation Date of Evaluation: 02/21/18 Time of Evaluation: 09:00 - Subjective Subjective: clinically same Objective - Vital Signs/Intake and Output Vital Signs (last 24 hours): Temp Pulse Resp BP Pulse Ox 97.5 F L 88 20 140/62 98 02/21/18 15:43 02/21/18 15:43 02/21/18 15:43 02/21/18 15:43 02/21/18 15:43 Intake and Output: 02/21/18 02/22/18 18:59 06:59 Intake Total 1250 Balance 1250 - Medications Medications: Current Medications Albuterol/Ipratropium (Duoneb 3 Mg/0.5 Mg (3 Ml) Ud) 3 ml INH RQ4 [facility] Last Admin: 02/21/18 20:10 Dose: 3 ml Amlodipine Besylate (Norvasc) 10 mg PO DAILY [facility] Last Admin: 02/21/18 09:32 Dose: 10 mg Ergocalciferol (Drisdol 50,000 Intl Units Cap) 1 cap PO QWK [facility] Glimepiride (Amaryl) 4 mg PO BID [facility] Last Admin: 02/21/18 17:29 Dose: 4 mg Hydrochlorothiazide (Microzide) 12.5 mg PO DAILY [facility] Last Admin: 02/21/18 09:32 Dose: 12.5 mg Azithromycin 500 mg/ Sodium (Chloride) 250 mls @ 250 mls/hr IVPB DAILY [facility]; Protocol Last Admin: 02/21/18 09:31 Dose: 250 mls/hr Ceftriaxone Sodium 1 gm/ (Sodium Chloride) 100 mls @ 100 mls/hr IVPB Q24H [facility]; Protocol Last Admin: 02/21/18 12:05 Dose: 100 mls/hr Insulin Aspart (Novolog) 0 unit SC ACHS [facility]; Protocol Last Admin: 02/21/18 21:33 Dose: Not Given Insulin Glargine (Lantus) 25 unit SC DAILY [facility] Last Admin: 02/21/18 09:32 Dose: 25 units Insulin Glargine (Lantus) 60 unit SC HS [facility] Last Admin: 02/21/18 21:43 Dose: 60 units Losartan Potassium (Cozaar) 50 mg PO DAILY [facility] Last Admin: 02/21/18 09:36 Dose: 50 mg Methylprednisolone (Solu-Medrol) 40 mg IVP Q12 [facility] Last Admin: 02/21/18 21:43 Dose: 40 mg Montelukast Sodium (Singulair) 10 mg PO HS [facility] Last Admin: 02/21/18 21:43 Dose: 10 mg Pantoprazole Sodium (Protonix Ec Tab) 40 mg PO DAILY [facility] Last Admin: 02/21/18 09:32 Dose: 40 mg Rosuvastatin Calcium (Crestor) 5 mg PO HS [facility] Last Admin: 02/21/18 21:43 Dose: 5 mg - Labs Labs: 02/21/18 10:49 02/21/18 10:49 PT 10.6 SECONDS (9.7-12.2) 02/16/18 21:44 INR 1.0 02/16/18 21:44 APTT 39 SECONDS (21-34) H 02/18/18 07:17 Assessment and Plan - Assessment and Plan (Free Text) Plan: Potassium supplementation continue same continue antidiabetic medications continue IV Rocephin and IV Zithromax Michael med as ordered kelly joyad by cardio
[2018-02-22] MEDS: Albuterol-Ipratrop 3 mg / 0.5 (3 ml) UD INH SCH ×5 (00:30→16:06)
[2018-02-22] MEDS: (Novolog) Insulin Aspart, Recombinant 100 u/ml 10 ml vial SC SCH ×4 (07:12→21:58)
[2018-02-22] MEDS: Azithromycin 500 MG in Sodium Chloride 0.9% 250 ML IVPB SCH (09:31)
[2018-02-22] MEDS: Pantoprazole 40 mg EC Tab PO SCH (09:32)
[2018-02-22] MEDS: MethylPREDNISolone 40 mg Vial IVP SCH ×2 (09:32→21:59)
[2018-02-22] MEDS: (Lantus) Insulin Glargine, Recombinant SC SCH ×2 (09:33→21:57)
--- NOTE | 2018-02-22 16:07 | CP.PCM.CON ---
History of Present Illness - History of Present Illness History of Present Illness: CHART REVIEWED. PT SEEN AND EXAMINED. 77 YO HISP FEMALE WITH A HX HTN, DM, ADM WITH INCREASED MOD COUGH X 1 WK., WORSE DAYTIME., WITH INCREASED MILD SOB WITH MIN EXERTION X FEW MONTHS. NO HX ASTHMA. NO FEVER, NO CP. Review of Systems - Review of Systems All systems: reviewed and no additional remarkable complaints except - Constitutional Constitutional: absent: Chills, Fever, Night Sweats, Weight Loss - EENT Eyes: absent: Change in Vision Nose/Mouth/Throat: absent: Nasal Congestion - Cardiovascular Cardiovascular: Leg Edema. absent: Chest Pain - Respiratory Respiratory: Cough, Dyspnea on Exertion, Excessive Mucous Production. absent: Wheezing, Change in Mucous Color - Gastrointestinal Gastrointestinal: absent: Nausea, Vomiting - Genitourinary Genitourinary: absent: Dysuria - Musculoskeletal Musculoskeletal: absent: Limited Range of Motion - Integumentary Integumentary: absent: Rash - Neurological Neurological: absent: Confusion, Focal Weakness - Psychiatric Psychiatric: absent: Anxiety - Endocrine Endocrine: absent: Change in Body Appearance - Hematologic/Lymphatic Hematologic: absent: Easy Bruising Past Patient History - Infectious Disease Hx of Infectious Diseases: None - Past Medical History & Family History Past Medical History?: Yes Pertinent Family History: +HTN +DM - Past Social History Smoking Status: Never Smoked Chewing Tobacco Use: No Cigar Use: No Alcohol: None - CARDIAC Hx Hypertension: Yes - PULMONARY Hx Asthma: No Hx Chronic Obstructive Pulmonary Disease (COPD): No - NEUROLOGICAL Hx Neurological Disorder: No - HEENT Hx Blind: Yes (Left Eye) Hx Cataracts: Yes (Left) - RENAL Hx Kidney Stones: Yes Other/Comment: "kidney problems" as per daughter - ENDOCRINE/METABOLIC Hx Diabetes Mellitus Type 2: Yes - HEMATOLOGICAL/ONCOLOGICAL Hx Blood Disorders: No - INTEGUMENTARY Hx Dermatological Problems: No - MUSCULOSKELETAL/RHEUMATOLOGICAL Hx Arthritis: Yes Hx Falls: No - GASTROINTESTINAL Hx Gastrointestinal Disorders: No - GENITOURINARY/GYNECOLOGICAL Hx Genitourinary Disorders: No - PSYCHIATRIC Hx Psychophysiologic Disorder: No Hx Substance Use: No - SURGICAL HISTORY Hx Surgeries: Yes Hx Cataract Extraction: Yes Hx Tubal Ligation: Yes Other/Comment: "ear sx" - ANESTHESIA Hx Anesthesia: Yes Hx Anesthesia Reactions: No Hx Malignant Hyperthermia: No Has any member of the family had a problem w/ anesthesia?: No Meds Allergies/Adverse Reactions: Allergies Allergy/AdvReac Type Severity Reaction Status Date / Time No Known Allergies Allergy Unverified 02/16/18 21:35 - Medications Medications: Current Medications Albuterol/Ipratropium (Duoneb 3 Mg/0.5 Mg (3 Ml) Ud) 3 ml INH RQ4 [facility] Last Admin: 02/22/18 11:10 Dose: Not Given Amlodipine Besylate (Norvasc) 10 mg PO DAILY [facility] Last Admin: 02/22/18 09:36 Dose: 10 mg Ergocalciferol (Drisdol 50,000 Intl Units Cap) 1 cap PO QWK [facility] Glimepiride (Amaryl) 4 mg PO BID [facility] Last Admin: 02/22/18 09:32 Dose: 4 mg Insulin Aspart (Novolog) 0 unit SC [facility]; Protocol Last Admin: 02/22/18 12:16 Dose: 1 unit Insulin Glargine (Lantus) 25 unit SC DAILY [facility] Last Admin: 02/22/18 09:33 Dose: 25 units Insulin Glargine (Lantus) [address] [facility] Last Admin: 02/21/18 21:43 Dose: 60 units Methylprednisolone (Solu-Medrol) 40 mg IVP Q12 [facility] Last Admin: 02/22/18 09:32 Dose: 40 mg Montelukast Sodium (Singulair) 10 mg PO HS [facility] Last Admin: 02/21/18 21:43 Dose: 10 mg Pantoprazole Sodium (Protonix Ec Tab) 40 mg PO DAILY [facility] Last Admin: 02/22/18 09:32 Dose: 40 mg Rosuvastatin Calcium (Crestor) [address] [facility] Last Admin: 02/21/18 21:43 Dose: 5 mg Physical Exam - Constitutional Appears: No Acute Distress - Head Exam Head Exam: ATRAUMATIC, NORMOCEPHALIC - Eye Exam Eye Exam: EOMI, Normal appearance - ENT Exam ENT Exam: Mucous Membranes Moist - Neck Exam Neck exam: Positive for: Normal Inspection - Respiratory Exam Respiratory Exam: Rales. absent: Accessory Muscle Use, Wheezes, Respiratory Distress - Cardiovascular Exam Cardiovascular Exam: RRR, +S1, +S2 - GI/Abdominal Exam GI & Abdominal Exam: Soft. absent: Tenderness - Rectal Exam Rectal Exam: Deferred - Extremities Exam Extremities exam: Positive for: pedal edema. Negative for: calf tenderness - Back Exam Back exam: absent: CVA tenderness (L), CVA tenderness (R) - Neurological Exam Neurological exam: Alert, CN II-XII Intact, Oriented x3 - Psychiatric Exam Psychiatric exam: Normal Mood Results - Vital Signs Recent Vital Signs: Last Vital Signs Temp 98.6 F 02/22/18 08:31 Pulse 89 02/22/18 08:31 Resp 20 02/22/18 08:31 BP 135/69 02/22/18 08:31 Pulse Ox 98 02/22/18 08:31 - Labs Result Diagrams: 02/21/18 10:49 02/23/18 06:24 Labs: Laboratory Results - last 24 hr 02/21/18 02/21/18 02/22/18 16:09 21:24 02:19 Sodium Potassium Chloride Carbon Dioxide Anion Gap BUN Creatinine Est GFR ( Amer) Est GFR (Non-Af Amer) POC Glucose (mg/dL) 311 H 149 H 147 H Random Glucose Calcium 02/22/18 02/22/18 02/22/18 06:23 07:49 11:28 Sodium 135 Potassium 3.5 L Chloride 97 L Carbon Dioxide 26 Anion Gap 16 BUN 73 H Creatinine 3.4 H Est GFR ( Amer) 16 Est GFR (Non-Af Amer) 13 POC Glucose (mg/dL) 108 164 H Random Glucose 80 D Calcium 8.0 L Assessment & Plan (1) Lung nodule Status: Acute (2) CHF (congestive heart failure) Status: Acute (3) Hypertension Status: Acute (4) Diabetes Status: Acute (5) JONA (acute kidney injury) Status: Acute (6) Dyspnea Status: Acute (7) Pneumonia Status: Acute (8) Renal insufficiency Status: Acute - Assessment and Plan (Free Text) Assessment: 77 YO FEMALE WITH A HX MULT MED PROBS ADM WITH DYSPNEA, + CHF /?PNA. CXR REVIEWED. CT CHEST REVIEWED. AFEBRILE ON EMPIRIC AB. CONT PULM TOILET., NEB BD., MONITOR O2 SAT. STEROID TAPER. DIURESIS PER CARDIO. MONITOR RENAL FN. LE DOPPLER REVIEWED, NEG FOR DVT. CONT DVT PROPHYLAXIS. PFT'S WHEN STABLE., MONITOR RLL NODULE WITH F/U CT CHEST FOR STABILITY. DISCUSSED WITH STAFF AND FAMILY AT BEDSIDE AND PMD.
--- NOTE | 2018-02-22 18:05 | PN ---
DATE: 02/22/2018 SUBJECTIVE: The patient is experiencing productive cough. No retrosternal chest pain. PHYSICAL EXAMINATION VITAL SIGNS: Blood pressure 135/69, heart rate 89, temperature 98.6, respirations 20. HEENT: Normocephalic. CHEST: Diminished breath sounds over the bases. HEART: S1 and S2 regular. EXTREMITIES: 1+ pitting edema. LABORATORY DATA: Today's SMA-7: Sodium 135, potassium 3.5, chloride 97, CO2 of 26, glucose 80, BUN 73, creatinine 3.4. ASSESSMENT: 1. Pneumonia. 2. Diastolic heart failure. 3. Improved hypokalemia. 4. Worsening renal insufficiency. RECOMMENDATIONS: Continue current Crestor 5 mg once a day. Cozaar will be discontinued. Continue Norvasc 10 mg once a day. Discontinue hydrochlorothiazide. Continue Solu-Medrol 40 mg intravenously every 12 hours. Obtain a followup BMP in a.m. Ryan Vidal MD
--- NOTE | 2018-02-22 19:32 | CP.PCM.PN ---
Subjective - Date & Time of Evaluation Date of Evaluation: 02/22/18 Time of Evaluation: 10:00 - Subjective Subjective: clinically same Objective - Vital Signs/Intake and Output Vital Signs (last 24 hours): Temp Pulse Resp BP Pulse Ox 97.9 F 90 20 144/72 98 02/22/18 15:20 02/22/18 15:20 02/22/18 15:20 02/22/18 15:20 02/22/18 15:20 - Medications Medications: Current Medications Amlodipine Besylate (Norvasc) 10 mg PO DAILY [facility] Last Admin: 02/22/18 09:36 Dose: 10 mg Ergocalciferol (Drisdol 50,000 Intl Units Cap) 1 cap PO QWK [facility] Glimepiride (Amaryl) 4 mg PO BID [facility] Last Admin: 02/22/18 18:01 Dose: 4 mg Insulin Aspart (Novolog) 0 unit SC [facility]; Protocol Last Admin: 02/22/18 18:01 Dose: 4 unit Insulin Glargine (Lantus) 25 unit SC DAILY [facility] Last Admin: 02/22/18 09:33 Dose: 25 units Insulin Glargine (Lantus) 60 unit SC HS [facility] Last Admin: 02/21/18 21:43 Dose: 60 units Methylprednisolone (Solu-Medrol) 40 mg IVP Q12 [facility] Last Admin: 02/22/18 09:32 Dose: 40 mg Montelukast Sodium (Singulair) 10 mg PO HS [facility] Last Admin: 02/21/18 21:43 Dose: 10 mg Pantoprazole Sodium (Protonix Ec Tab) 40 mg PO DAILY [facility] Last Admin: 02/22/18 09:32 Dose: 40 mg Rosuvastatin Calcium (Crestor) 5 mg PO HS [facility] Last Admin: 02/21/18 21:43 Dose: 5 mg - Labs Labs: 02/21/18 10:49 02/22/18 07:49 PT 10.6 SECONDS (9.7-12.2) 02/16/18 21:44 INR 1.0 02/16/18 21:44 APTT 39 SECONDS (21-34) H 02/18/18 07:17
[2018-02-23 06:44] LABS: CALCIUM 7.5 mg/dl (8.6-10.4)
[2018-02-23] MEDS: (Novolog) Insulin Aspart, Recombinant 100 u/ml 10 ml vial SC SCH ×3 (08:27→18:40)
[2018-02-23] MEDS: (Lantus) Insulin Glargine, Recombinant SC SCH (09:36)
[2018-02-23] MEDS: MethylPREDNISolone 40 mg Vial IVP SCH (09:36)
[2018-02-23] MEDS: Pantoprazole 40 mg EC Tab PO SCH (09:36)
--- NOTE | 2018-02-23 12:22 | CP.PCM.PN ---
Subjective - Date & Time of Evaluation Date of Evaluation: 02/23/18 Time of Evaluation: 10:00 - Subjective Subjective: clinically same Objective - Vital Signs/Intake and Output Vital Signs (last 24 hours): Temp Pulse Resp BP Pulse Ox 98.3 F 87 20 138/76 100 02/23/18 07:00 02/23/18 07:00 02/23/18 07:00 02/23/18 07:00 02/23/18 07:00 - Medications Medications: Current Medications Amlodipine Besylate (Norvasc) 10 mg PO DAILY [facility] Last Admin: 02/23/18 09:36 Dose: 10 mg Ergocalciferol (Drisdol 50,000 Intl Units Cap) 1 cap PO QWK [facility] Glimepiride (Amaryl) 4 mg PO BID [facility] Last Admin: 02/23/18 09:36 Dose: 4 mg Heparin Sodium (Porcine) (Heparin) 5,000 units SC Q12 [facility] Last Admin: 02/23/18 09:36 Dose: 5,000 units Insulin Aspart (Novolog) 0 unit SC [facility]; Protocol Last Admin: 02/23/18 12:07 Dose: Not Given Insulin Glargine (Lantus) 25 unit SC DAILY [facility] Last Admin: 02/23/18 09:36 Dose: 25 units Insulin Glargine (Lantus) 60 unit SC HS [facility] Last Admin: 02/22/18 21:57 Dose: 60 units Methylprednisolone (Solu-Medrol) 40 mg IVP Q12 [facility] Last Admin: 02/23/18 09:36 Dose: 40 mg Montelukast Sodium (Singulair) 10 mg PO HS [facility] Last Admin: 02/22/18 21:59 Dose: 10 mg Pantoprazole Sodium (Protonix Ec Tab) 40 mg PO DAILY [facility] Last Admin: 02/23/18 09:36 Dose: 40 mg Rosuvastatin Calcium (Crestor) 5 mg PO HS [facility] Last Admin: 02/22/18 21:56 Dose: 5 mg - Labs Labs: 02/21/18 10:49 02/23/18 06:24 PT 10.6 SECONDS (9.7-12.2) 02/16/18 21:44 INR 1.0 02/16/18 21:44 APTT 39 SECONDS (21-34) H 02/18/18 07:17
--- NOTE | 2018-02-23 14:23 | CP.PCM.PN ---
Subjective - Date & Time of Evaluation Date of Evaluation: 02/23/18 Time of Evaluation: 14:21 - Subjective Subjective: PT ALERT, OOB IN CHAIR. FEELS BETTER. ROS; OTHERWISE NEG Objective - Vital Signs/Intake and Output Vital Signs (last 24 hours): Temp Pulse Resp BP Pulse Ox 98.3 F 87 20 138/76 100 02/23/18 07:00 02/23/18 07:00 02/23/18 07:00 02/23/18 07:00 02/23/18 07:00 - Medications Medications: Current Medications Amlodipine Besylate (Norvasc) 10 mg PO DAILY [facility] Last Admin: 02/23/18 09:36 Dose: 10 mg Ergocalciferol (Drisdol 50,000 Intl Units Cap) 1 cap PO QWK [facility] Glimepiride (Amaryl) 4 mg PO BID [facility] Last Admin: 02/23/18 09:36 Dose: 4 mg Heparin Sodium (Porcine) (Heparin) 5,000 units SC Q12 [facility] Last Admin: 02/23/18 09:36 Dose: 5,000 units Insulin Aspart (Novolog) 0 unit SC [facility]; Protocol Last Admin: 02/23/18 12:07 Dose: Not Given Insulin Glargine (Lantus) 25 unit SC DAILY [facility] Last Admin: 02/23/18 09:36 Dose: 25 units Insulin Glargine (Lantus) 60 unit SC HS [facility] Last Admin: 02/22/18 21:57 Dose: 60 units Methylprednisolone (Solu-Medrol) 40 mg IVP Q12 [facility] Last Admin: 02/23/18 09:36 Dose: 40 mg Montelukast Sodium (Singulair) 10 mg PO HS [facility] Last Admin: 02/22/18 21:59 Dose: 10 mg Pantoprazole Sodium (Protonix Ec Tab) 40 mg PO DAILY [facility] Last Admin: 02/23/18 09:36 Dose: 40 mg Rosuvastatin Calcium (Crestor) 5 mg PO HS [facility] Last Admin: 02/22/18 21:56 Dose: 5 mg - Labs Labs: 02/21/18 10:49 02/23/18 06:24 PT 10.6 SECONDS (9.7-12.2) 02/16/18 21:44 INR 1.0 02/16/18 21:44 APTT 39 SECONDS (21-34) H 02/18/18 07:17 - Constitutional Appears: No Acute Distress - Head Exam Head Exam: ATRAUMATIC, NORMOCEPHALIC - Eye Exam Eye Exam: EOMI, Normal appearance - ENT Exam ENT Exam: Mucous Membranes Moist - Respiratory Exam Respiratory Exam: Rhonchi. absent: Accessory Muscle Use, Respiratory Distress - Cardiovascular Exam Cardiovascular Exam: RRR, +S1, +S2 - GI/Abdominal Exam GI & Abdominal Exam: Soft. absent: Tenderness - Rectal Exam Rectal Exam: Deferred - Extremities Exam Extremities Exam: Pedal Edema. absent: Calf Tenderness - Back Exam Back Exam: absent: CVA tenderness (L), CVA tenderness (R) - Neurological Exam Neurological Exam: Alert, Awake, CN II-XII Intact, Oriented x3 - Psychiatric Exam Psychiatric exam: Normal Mood - Skin Skin Exam: absent: Rash Assessment and Plan (1) Lung nodule Status: Acute (2) CHF (congestive heart failure) Status: Acute (3) Hypertension Status: Acute (4) Diabetes Status: Acute (5) JONA (acute kidney injury) Status: Acute (6) Dyspnea Status: Acute (7) Pneumonia Status: Acute (8) Renal insufficiency Status: Acute - Assessment and Plan (Free Text) Assessment: RESP STATUS IMPROVING., CONT PULM TOILET., NEB BD. MONITOR O2 SAT. CXR REVIEWED. TAPER STEROIDS. MONITOR RENAL FN. DISCUSSED WITH STAFF.
[2018-02-23] MEDS ORDERED: MethylPREDNISolone 40 mg Vial IVP SCH (14:25)
[2018-02-23 18:05] VITALS: BP 151/78; PULSE 82; RESP 18; TEMP 97.9; O2SAT 96
--- NOTE | 2018-02-23 20:09 | PN ---
DATE: 02/23/2018 SUBJECTIVE: The patient is still experiencing productive cough and mild leg swelling. She denies retrosternal chest pain. OBJECTIVE: VITAL SIGNS: Blood pressure 132/76, heart rate 87, temperature 98.3, and respirations 20. HEENT: Normocephalic. CHEST: Bibasilar rhonchi. HEART: S1 and S2 regular. ABDOMEN: Soft. EXTREMITIES: 1+ pitting edema. LABORATORY DATA: Today's SMA-7: Sodium 136, potassium 3.8, chloride 97, CO2 of 26, glucose 151, BUN 71, and creatinine 2.8. ASSESSMENT AND PLAN: 1. Severe pulmonary hypertension and left-sided heart failure. 2. Chronic renal insufficiency with an element of prerenal azotemia on top of that. 3. Pneumonia. RECOMMENDATIONS: Case was discussed with the primary physician Dr. Paola Gonzalez yesterday. Continue current subcutaneous heparin 5000 units every 8 hours and Norvasc 10 mg once a day, Protonix 20 mg twice a day, Solu-Medrol 30 mg every 12 hours. The patient is off diuretics for now as well as KARUNA inhibitors until reasonable improvement in the BUN and creatinine eventually. Ryan Vidal MD
[2018-02-24] MEDS ORDERED: Ergocalciferol 50,000 Intl Units Cap PO SCH (10:00)
--- NOTE | 2018-02-25 08:14 | PCM.HF ---
Heart Failure Core Measure - Heart Failure Ejection Fraction: 40 % or Greater KARUNA Inhibitor Prescribed: No Contraindication/Reason for not providing: ON KARUNA Beta-Gorge Prescribed: None Contraindication/Reason for not providing: COPD Angiotensin II Receptor Gorge Prescribed: Yes AnticoagulationTherapy for Atrial Fibrillation/Atrialflutter: No Contraindication/Reason for not providing: NO HX OF A FIB Aldosterone Antagonist Prescribed: No Contraindication/Reason for not providing: EF>45 Hydralazine Nitrate Prescribed: No Contraindication/Reason for not providing: EF>45 Implantable Cardioverter Defibrillator Therapy: No Contraindication/Reason for not providing: EF.45 Cardiac Resynchronization Therapy Prescribed: No Contraindication/Reason for not providing: EF>45 - Follow up Will be discharged to: Home Follow Up Date (must be within 7 days from discharge): 02/27/18 Follow Up Time: 14:00
== END 2018-02-23 19:46 | disposition home or self-care (01) | DRG 291 ==
LOC: C.ER 21:30 → C.6T 23:42
PROVIDERS: ADMIT Internal Medicine Nephrology; ATTEND Internal Medicine Nephrology
DX: I13.0 Hypertensive heart and chronic kidney disease with heart failure and stage 1 through stage 4 chronic kidney disease, or unspecified chronic kidney disease (principal); J18.9 Pneumonia, unspecified organism; I50.33 Acute on chronic diastolic (congestive) heart failure; N17.9 Acute kidney failure, unspecified; E87.6 Hypokalemia; E11.65 Type 2 diabetes mellitus with hyperglycemia; E11.22 Type 2 diabetes mellitus with diabetic chronic kidney disease; N18.9 Chronic kidney disease, unspecified; H54.40 Blindness, one eye, unspecified eye; I27.20 Pulmonary hypertension, unspecified

== ENCOUNTER 2018-02-24 14:23 | Inpatient (IN) | payer MEDICARE, MEDICAID ==
[2018-02-24 15:31] LABS: BASO % 0.2 % (0.0-2.0); EOS # 0.1 K/uL (0.0-0.7); EOS % 0.5 % (0.0-4.0); HEMOGLOBIN 13.2 g/dL (11.0-16.0); LYMPH # 2.7 K/uL (1.0-4.3); LYMPH % 13.5 % (20.0-40.0); MEAN CELL VOLUME 82.8 fL (81.0-99.0); MEAN CORPUSCULAR HEMOGLOBIN 26.9 pg (27.0-31.0); MEAN CORPUSCULAR HGB CONC 32.5 g/dL (33.0-37.0); MEAN PLATELET VOLUME 10.8 fL (7.2-11.7); MONO # 1.6 K/uL (0.0-0.8); MONO % 8.1 % (0.0-10.0); NEUT # 15.3 K/uL (1.8-7.0); NEUT % 77.7 % (50.0-75.0); RBC 4.92 Mil/uL (3.80-5.20); RED CELL DISTRIBUTION WIDTH 13.7 % (11.5-14.5); WHITE BLOOD COUNT 19.7 K/uL (4.8-10.8)
--- NOTE | 2018-02-24 15:34 | RAD ---
HISTORY: r/o infiltrate COMPARISON: Chest x-ray performed 02/16/18, CT chest without contrast performed 02/16/18 TECHNIQUE: Chest, one view. FINDINGS: Examination limited by habitus. LUNGS: Medial right lower lobe atelectasis or pneumonia. Please note that chest x-ray has limited sensitivity for the detection of pulmonary masses. PLEURA: No significant pleural effusion identified. No definite pneumothorax . CARDIOVASCULAR: Cardiomegaly. OSSEOUS STRUCTURES: Degenerative changes. VISUALIZED UPPER ABDOMEN: Unremarkable. OTHER FINDINGS: None. IMPRESSION: Cardiomegaly. Medial right lower lobe atelectasis or pneumonia.
[2018-02-24 15:49] LABS: ALB/GLOB RATIO 1.2 (1.0-2.1); ALBUMIN 3.8 g/dL (3.5-5.0); CALCIUM 8.1 mg/dl (8.6-10.4)
[2018-02-24 15:54] LABS: TROPONIN I 0.227 ng/mL (0.00-0.120)
[2018-02-24 16:01] LABS: SQUAMOUS EPITHIAL 2 /hpf (0-5); URINE BILIRUBIN NEGATIVE (NEGATIVE); URINE BLOOD NEGATIVE (NEGATIVE); URINE CLARITY Clear (Clear); URINE COLOR Straw (YELLOW); URINE GLUCOSE (UA) 1+ mg/dL (Normal); URINE LEUKOCYTE ESTERASE NEG Leu/uL (Negative); URINE PROTEIN 2+ mg/dL (NEGATIVE); URINE UROBILINOGEN NORMAL mg/dL (0.2-1.0)
[2018-02-24] MEDS ORDERED: Dextrose 50% SYRINGE Inj (50 ml) IV STA (16:03)
[2018-02-24] MEDS ORDERED: Dextrose 50% SYRINGE Inj (50 ml) ONE (16:08)
[2018-02-24] MEDS ORDERED: Azithromycin 500 MG in Sodium Chloride 0.9% 250 ML IVPB STA (17:04)
--- NOTE | 2018-02-24 17:47 | CP.PCM.HP ---
Past Patient History - Infectious Disease Hx of Infectious Diseases: None - Past Medical History & Family History Past Medical History?: Yes - Past Social History Smoking Status: Never Smoked - CARDIAC Hx Cardiac Disorders: Yes Hx Congestive Heart Failure: Yes Hx Hypertension: Yes - PULMONARY Hx Respiratory Disorders: Yes Hx Asthma: No Hx Chronic Obstructive Pulmonary Disease (COPD): No Hx Pneumonia: Yes - NEUROLOGICAL Hx Neurological Disorder: No - HEENT Hx HEENT Problems: Yes Hx Blind: Yes (Left Eye) Hx Cataracts: Yes (Left) - RENAL Hx Chronic Kidney Disease: Yes Hx Kidney Stones: Yes Other/Comment: "kidney problems" as per daughter - ENDOCRINE/METABOLIC Hx Endocrine Disorders: Yes Hx Diabetes Mellitus Type 2: Yes - HEMATOLOGICAL/ONCOLOGICAL Hx Blood Disorders: No - INTEGUMENTARY Hx Dermatological Problems: No - MUSCULOSKELETAL/RHEUMATOLOGICAL Hx Musculoskeletal Disorders: Yes Hx Arthritis: Yes Hx Falls: No - GASTROINTESTINAL Hx Gastrointestinal Disorders: No - GENITOURINARY/GYNECOLOGICAL Hx Genitourinary Disorders: No - PSYCHIATRIC Hx Psychophysiologic Disorder: No Hx Substance Use: No - SURGICAL HISTORY Hx Surgeries: Yes Hx Cataract Extraction: Yes Hx Cholecystectomy: Yes Hx Tubal Ligation: Yes Other/Comment: "ear sx" - ANESTHESIA Hx Anesthesia: Yes Hx Anesthesia Reactions: No Hx Malignant Hyperthermia: No Meds Allergies/Adverse Reactions: Allergies Allergy/AdvReac Type Severity Reaction Status Date / Time No Known Allergies Allergy Verified 02/24/18 14:41 Results - Vital Signs Recent Vital Signs: Last Vital Signs Temp 97.6 F 02/24/18 14:26 Pulse 89 02/24/18 17:34 Resp 14 02/24/18 17:34 BP 187/84 H 02/24/18 17:34 Pulse Ox 97 02/24/18 17:34 - Labs Result Diagrams: 02/24/18 15:23 02/24/18 15:23 Labs: Laboratory Results - last 24 hr 02/24/18 02/24/18 02/24/18 14:28 15:15 15:23 WBC 19.7 H D RBC 4.92 Hgb 13.2 Hct 40.7 MCV 82.8 MCH 26.9 L MCHC 32.5 L RDW 13.7 Plt Count 274 MPV 10.8 Neut % (Auto) 77.7 H Lymph % (Auto) 13.5 L [place] % (Auto) 8.1 Eos % (Auto) 0.5 Baso % (Auto) 0.2 Neut # (Auto) 15.3 H Lymph # (Auto) 2.7 [place] # (Auto) 1.6 H Eos # (Auto) 0.1 Baso # (Auto) 0.0 Sodium Potassium Chloride Carbon Dioxide Anion Gap BUN Creatinine Est GFR ( Amer) Est GFR (Non-Af Amer) POC Glucose (mg/dL) 119 H Random Glucose Calcium Total Bilirubin AST ALT Alkaline Phosphatase Troponin I NT-Pro-B Natriuret Pep Total Protein Albumin Globulin Albumin/Globulin Ratio Urine Color Straw Urine Clarity Clear Urine pH 6.0 Ur Specific [place] 1.011 Urine Protein 2+ H Urine Glucose (UA) 1+ Urine Ketones Negative Urine Blood Negative Urine Nitrate Negative Urine Bilirubin Negative Urine Urobilinogen Normal Ur Leukocyte Esterase Neg Urine WBC (Auto) 1 Urine RBC (Auto) < 1 Ur Squamous Epith Cells 2 02/24/18 02/24/18 02/24/18 15:23 15:28 15:34 WBC RBC Hgb Hct MCV MCH MCHC RDW Plt Count MPV Neut % (Auto) Lymph % (Auto) [place] % (Auto) Eos % (Auto) Baso % (Auto) Neut # (Auto) Lymph # (Auto) [place] # (Auto) Eos # (Auto) Baso # (Auto) Sodium 136 Potassium 4.9 Chloride 101 Carbon Dioxide 26 Anion Gap 13 BUN 72 H Creatinine 2.3 H Est GFR ( Amer) 25 Est GFR (Non-Af Amer) 21 POC Glucose (mg/dL) 61 L Random Glucose 106 H D Calcium 8.1 L Total Bilirubin 0.7 AST 52 H D ALT 58 H D Alkaline Phosphatase 62 Troponin I 0.2270 H* NT-Pro-B Natriuret Pep 4660 H Total Protein 6.9 Albumin 3.8 Globulin 3.2 Albumin/Globulin Ratio 1.2 Urine Color Urine Clarity Urine pH Ur Specific [place] Urine Protein Urine Glucose (UA) Urine Ketones Urine Blood Urine Nitrate Urine Bilirubin Urine Urobilinogen Ur Leukocyte Esterase Urine WBC (Auto) Urine RBC (Auto) Ur Squamous Epith Cells 02/24/18 02/24/18 16:01 16:45 WBC RBC Hgb Hct MCV MCH MCHC RDW Plt Count MPV Neut % (Auto) Lymph % (Auto) [place] % (Auto) Eos % (Auto) Baso % (Auto) Neut # (Auto) Lymph # (Auto) [place] # (Auto) Eos # (Auto) Baso # (Auto) Sodium Potassium Chloride Carbon Dioxide Anion Gap BUN Creatinine Est GFR ( Amer) Est GFR (Non-Af Amer) POC Glucose (mg/dL) 64 L 220 H Random Glucose Calcium Total Bilirubin AST ALT Alkaline Phosphatase Troponin I NT-Pro-B Natriuret Pep Total Protein Albumin Globulin Albumin/Globulin Ratio Urine Color Urine Clarity Urine pH Ur Specific [place] Urine Protein Urine Glucose (UA) Urine Ketones Urine Blood Urine Nitrate Urine Bilirubin Urine Urobilinogen Ur Leukocyte Esterase Urine WBC (Auto) Urine RBC (Auto) Ur Squamous Epith Cells
--- NOTE | 2018-02-24 18:05 | C.PDOC ---
History Of Present Illness 77 year old female presents to the emergency department accompanied by family, who state that throughout the day today the patient was very sleepy. Family states that they called 911, and the patient's blood sugar was found to be 50. D50 was given in the field, and the patient awoke and alert and oriented. In the ED at this time, the patient has no complaints, she denies chest pain, shortness of breath, fever, and cough. Patient was discharged from the hospital yesterday. Chief Complaint (Nursing): Altered Mental Status History Per: Patient, Family History/Exam Limitations: None Onset/Duration Of Symptoms: Hrs Current Symptoms Are (Timing): Still Present Usual Baseline: Alert Oriented Associated Symptoms: denies: Fever, Chills, Chest Pain, Cough, Dyspnea Past Medical History Reviewed: Historical Data, Nursing Documentation, Vital Signs Vital Signs: Last Vital Signs Temp 97.6 F 02/24/18 14:26 Pulse 89 02/24/18 17:34 Resp 14 02/24/18 17:34 BP 187/84 H 02/24/18 17:34 Pulse Ox 97 02/24/18 17:34 - Medical History PMH: Arthritis, CHF, HTN, Kidney Stones, Pneumonia, Chronic Kidney Disease Denies: Asthma, COPD Surgical History: Cholecystectomy Family History: States: No Known Family Hx - Social History Hx Alcohol Use: No Hx Substance Use: No - Immunization History Hx Tetanus Toxoid Vaccination: No Hx Influenza Vaccination: Yes Hx Pneumococcal Vaccination: No Review Of Systems Except As Marked, All Systems Reviewed And Found Negative. Constitutional: Negative for: Fever, Chills Cardiovascular: Negative for: Chest Pain Respiratory: Negative for: Cough, Shortness of Breath Gastrointestinal: Negative for: Nausea, Vomiting Neurological: Positive for: Altered Mental Status Physical Exam - Physical Exam Appears: Well, Non-toxic, No Acute Distress Skin: Normal Color, Warm Head: Atraumatic, Normacephalic Eye(s): bilateral: Normal Inspection, PERRL, EOMI Nose: Normal Oral Mucosa: Moist Neck: Normal, Supple Chest: Symmetrical, No Tenderness Cardiovascular: Rhythm Regular, Murmur (systolic) Respiratory: Normal Breath Sounds, No Rales, No Rhonchi, No Wheezing Gastrointestinal/Abdominal: Soft, No Tenderness, No Guarding, No Rebound Extremity: Swelling (trace bilateral pitting edema) Neurological/Psych: Oriented x3, Normal Speech, Normal Cognition ED Course And Treatment - Laboratory Results Result Diagrams: 02/24/18 15:23 02/24/18 15:23 O2 Sat by Pulse Oximetry: 97 (RA) Medical Decision Making Medical Decision Making: Plan: EKG BNP CMP Troponin I CBC CXR Glucose POC Rocephin 1gm NaCl IV Fluids Aspirin 325mg PO Blood Culture Urine Culture Urinalysis Progress: Patient's Troponin level was found to be elevated. Patient continued to deny any pain. Dr. Neo Gonzalez was contacted, will admit the patient to telemetry for N- STEMI. Aspirin given in the ED. Disposition - Disposition Disposition: HOSPITALIZED Disposition Time: 16:10 Condition: FAIR - Clinical Impression Clinical Impression: Hypoglycemia, Elevated troponin - Scribe Statement The provider has reviewed the documentation as recorded by the Scribe (Jamal Alvarez) Provider Attestation: All medical record entries made by the Scribe were at my direction and personally dictated by me. I have reviewed the chart and agree that the record accurately reflects my personal performance of the history, physical exam, medical decision making, and the department course for this patient. I have also personally directed, reviewed, and agree with the discharge instructions and disposition.
[2018-02-24] MEDS ORDERED: Azithromycin 500mg/250ML NS 500 MG/250 ML BAG IVPB ONE (18:35)
[2018-02-24] MEDS: MethylPREDNISolone 40 mg Vial IVP SCH (19:38)
[2018-02-24 20:37] LABS: CK-MB 4.11 ng/mL (0.0-3.38); TROPONIN I 0.21 ng/mL (0.00-0.120)
[2018-02-25] MEDS: MethylPREDNISolone 40 mg Vial IVP SCH ×3 (01:57→17:50)
[2018-02-25 02:54] LABS: CK-MB 3.74 ng/mL (0.0-3.38); TROPONIN I 0.205 ng/mL (0.00-0.120)
[2018-02-25] MEDS: Albuterol-Ipratrop 3 mg / 0.5 (3 ml) UD INH SCH ×4 (03:19→19:25)
[2018-02-25] MEDS ORDERED: Enoxaparin 40 mg Syringe SC SCH ×2 (10:00)
[2018-02-25] MEDS: (Lantus) Insulin Glargine, Recombinant SC SCH (10:49)
--- NOTE | 2018-02-25 11:17 | CT ---
Date of service: 02/25/2018 PROCEDURE: CT HEAD WITHOUT CONTRAST. HISTORY: AMS COMPARISON: None available. TECHNIQUE: Axial computed tomography images were obtained through the head/brain without intravenous contrast. Radiation dose: Total exam DLP = 1031.12 mGy-cm. This CT exam was performed using one or more of the following dose reduction techniques: Automated exposure control, adjustment of the mA and/or kV according to patient size, and/or use of iterative reconstruction technique. FINDINGS: HEMORRHAGE: No intracranial hemorrhage. BRAIN: No cortical edema or mass-effect is identified. Instead, extensive white matter lucency is appreciate the subcortical, periventricular and centrum semiovale distributions at the bilateral cerebral hemispheres and is a somewhat more prominent feature of age related neuro degenerative change than mild expansion of the ventricular sulcal and cisternal spaces but still appropriate for the patient's stated age of 77 years. Posterior fossa contents appear unremarkable including the brainstem. VENTRICLES: No hydrocephalus. CALVARIUM: Unremarkable. PARANASAL SINUSES: Unremarkable as visualized. No significant inflammatory changes. MASTOID AIR CELLS: Unremarkable as visualized. No inflammatory changes. OTHER FINDINGS: None. IMPRESSION: Age-appropriate age related neuro degenerative findings. No definite acute intracranial findings by standard CT criteria. Follow-up CT or MRI are available if clinically warranted.
[2018-02-25 12:30] LABS: BASO % 0.1 % (0.0-2.0); HEMOGLOBIN 12.9 g/dL (11.0-16.0); LYMPH # 1.6 K/uL (1.0-4.3); LYMPH % 8.6 % (20.0-40.0); MEAN CELL VOLUME 82.4 fL (81.0-99.0); MEAN CORPUSCULAR HEMOGLOBIN 26.4 pg (27.0-31.0); MEAN CORPUSCULAR HGB CONC 32.1 g/dL (33.0-37.0); MEAN PLATELET VOLUME 10.7 fL (7.2-11.7); MONO # 0.6 K/uL (0.0-0.8); MONO % 3.1 % (0.0-10.0); NEUT # 16.3 K/uL (1.8-7.0); NEUT % 88.2 % (50.0-75.0); PLATELET COUNT 265 K/uL (130-400); RBC 4.87 Mil/uL (3.80-5.20); RED CELL DISTRIBUTION WIDTH 13.8 % (11.5-14.5); WHITE BLOOD COUNT 18.5 K/uL (4.8-10.8)
[2018-02-25 14:59] LABS: ALB/GLOB RATIO 1.1 (1.0-2.1); ALBUMIN 3.3 g/dL (3.5-5.0); CALCIUM 8.4 mg/dl (8.6-10.4)
[2018-02-25 15:09] LABS: LYMPHOCYTE 10 % (20-40); MONOCYTE 4 % (0-10); NEUTROPHIL 86 % (50-75); PLATELET ESTIMATE NORMAL (NORMAL); TARGET CELLS SLIGHT; TOTAL CELLS COUNTED 100
--- NOTE | 2018-02-25 16:55 | CP.PCM.CON ---
Past Patient History - Infectious Disease Hx of Infectious Diseases: None - Past Medical History & Family History Past Medical History?: Yes - Past Social History Smoking Status: Never Smoked - CARDIAC Hx Congestive Heart Failure: Yes Hx Hypertension: Yes - PULMONARY Hx Asthma: No Hx Chronic Obstructive Pulmonary Disease (COPD): No Hx Pneumonia: Yes - NEUROLOGICAL Hx Neurological Disorder: No - HEENT Hx HEENT Problems: Yes Hx Blind: Yes (Left Eye) Hx Cataracts: Yes (Left) - RENAL Hx Chronic Kidney Disease: Yes Hx Kidney Stones: Yes - ENDOCRINE/METABOLIC Hx Endocrine Disorders: Yes Hx Diabetes Mellitus Type 2: Yes - HEMATOLOGICAL/ONCOLOGICAL Hx Blood Disorders: No - INTEGUMENTARY Hx Dermatological Problems: No - MUSCULOSKELETAL/RHEUMATOLOGICAL Hx Arthritis: Yes - GASTROINTESTINAL Hx Gastrointestinal Disorders: No - GENITOURINARY/GYNECOLOGICAL Hx Genitourinary Disorders: No - PSYCHIATRIC Hx Substance Use: No - SURGICAL HISTORY Hx Cholecystectomy: Yes - ANESTHESIA Hx Anesthesia: Yes Hx Anesthesia Reactions: No Hx Malignant Hyperthermia: No Meds Allergies/Adverse Reactions: Allergies Allergy/AdvReac Type Severity Reaction Status Date / Time No Known Allergies Allergy Verified 02/24/18 14:41 - Medications Medications: Current Medications Albuterol/Ipratropium (Duoneb 3 Mg/0.5 Mg (3 Ml) Ud) 3 ml INH RQ6 [facility] Last Admin: 02/25/18 13:40 Dose: 3 ml Amlodipine Besylate (Norvasc) 10 mg PO DAILY [facility] Last Admin: 02/25/18 10:50 Dose: 10 mg Aspirin (Aspirin) 325 mg PO DAILY [facility] Last Admin: 02/25/18 10:55 Dose: 325 mg Carvedilol (Coreg) 3.125 mg PO BID [facility] Clopidogrel Bisulfate (Plavix) 75 mg PO DAILY [facility] Last Admin: 02/25/18 16:05 Dose: 75 mg Ergocalciferol (Drisdol 50,000 Intl Units Cap) 1 cap PO QWK [facility] Furosemide (Lasix) 40 mg IVP DAILY [facility] Last Admin: 02/25/18 10:50 Dose: 40 mg Glimepiride (Amaryl) 4 mg PO BID [facility] Last Admin: 02/25/18 10:50 Dose: 4 mg Heparin Sodium (Porcine) (Heparin) 5,000 units SC Q12 [facility] Last Admin: 02/25/18 14:48 Dose: 5,000 units Hydrochlorothiazide (Microzide) 12.5 mg PO DAILY [facility] Last Admin: 02/25/18 10:50 Dose: 12.5 mg Ceftriaxone Sodium 1 gm/ (Sodium Chloride) 100 mls @ 100 mls/hr IVPB Q24H [facility]; Protocol Last Admin: 02/24/18 20:41 Dose: 100 mls/hr Insulin Glargine (Lantus) 25 unit SC DAILY [facility] Last Admin: 02/25/18 10:49 Dose: 25 units Losartan Potassium (Cozaar) 50 mg PO DAILY [facility] Last Admin: 02/25/18 10:50 Dose: 50 mg Methylprednisolone (Solu-Medrol) 40 mg IVP Q8H [facility] Last Admin: 02/25/18 10:52 Dose: 40 mg Rosuvastatin Calcium (Crestor) 5 mg PO HS [facility] Last Admin: 02/24/18 21:36 Dose: 5 mg Results - Vital Signs Recent Vital Signs: Last Vital Signs Temp 97.9 F 02/25/18 15:00 Pulse 75 02/25/18 16:00 Resp 18 02/25/18 15:00 BP 149/75 02/25/18 15:00 Pulse Ox 98 02/25/18 15:00 - Labs Result Diagrams: 02/25/18 13:09 02/25/18 14:18 Labs: Laboratory Results - last 24 hr 02/24/18 02/24/18 02/24/18 18:39 20:02 20:49 WBC RBC Hgb Hct MCV MCH MCHC RDW Plt Count MPV Neut % (Auto) Lymph % (Auto) [place] % (Auto) Eos % (Auto) Baso % (Auto) Neut # (Auto) Lymph # (Auto) [place] # (Auto) Eos # (Auto) Baso # (Auto) Neutrophils % (Manual) Lymphocytes % (Manual) Monocytes % (Manual) Platelet Estimate Target Cells Sodium Potassium Chloride Carbon Dioxide Anion Gap BUN Creatinine Est GFR ( Amer) Est GFR (Non-Af Amer) POC Glucose (mg/dL) 269 H 190 H Random Glucose Calcium Total Bilirubin AST ALT Alkaline Phosphatase Total Creatine Kinase 438 H CK-MB (Mass) 4.11 H Troponin I 0.2100 H* Total Protein Albumin Globulin Albumin/Globulin Ratio 02/24/18 02/25/18 02/25/18 21:34 02:16 06:16 WBC RBC Hgb Hct MCV MCH MCHC RDW Plt Count MPV Neut % (Auto) Lymph % (Auto) [place] % (Auto) Eos % (Auto) Baso % (Auto) Neut # (Auto) Lymph # (Auto) [place] # (Auto) Eos # (Auto) Baso # (Auto) Neutrophils % (Manual) Lymphocytes % (Manual) Monocytes % (Manual) Platelet Estimate Target Cells Sodium Potassium Chloride Carbon Dioxide Anion Gap BUN Creatinine Est GFR ( Amer) Est GFR (Non-Af Amer) POC Glucose (mg/dL) 144 H 92 Random Glucose Calcium Total Bilirubin AST ALT Alkaline Phosphatase Total Creatine Kinase 384 H CK-MB (Mass) 3.74 H Troponin I 0.2050 H* Total Protein Albumin Globulin Albumin/Globulin Ratio 02/25/18 02/25/18 02/25/18 11:21 11:23 11:56 WBC RBC Hgb Hct MCV MCH MCHC RDW Plt Count MPV Neut % (Auto) Lymph % (Auto) [place] % (Auto) Eos % (Auto) Baso % (Auto) Neut # (Auto) Lymph # (Auto) [place] # (Auto) Eos # (Auto) Baso # (Auto) Neutrophils % (Manual) Lymphocytes % (Manual) Monocytes % (Manual) Platelet Estimate Target Cells Sodium Potassium Chloride Carbon Dioxide Anion Gap BUN Creatinine Est GFR ( Amer) Est GFR (Non-Af Amer) POC Glucose (mg/dL) 58 L 59 L 116 H Random Glucose Calcium Total Bilirubin AST ALT Alkaline Phosphatase Total Creatine Kinase CK-MB (Mass) Troponin I Total Protein Albumin Globulin Albumin/Globulin Ratio 02/25/18 02/25/18 02/25/18 13:09 14:18 16:13 WBC 18.5 H RBC 4.87 Hgb 12.9 Hct 40.2 MCV 82.4 MCH 26.4 L MCHC 32.1 L RDW 13.8 Plt Count 265 MPV 10.7 Neut % (Auto) 88.2 H Lymph % (Auto) 8.6 L [place] % (Auto) 3.1 Eos % (Auto) 0.0 Baso % (Auto) 0.1 Neut # (Auto) 16.3 H Lymph # (Auto) 1.6 [place] # (Auto) 0.6 Eos # (Auto) 0.0 Baso # (Auto) 0.0 Neutrophils % (Manual) 86 H Lymphocytes % (Manual) 10 L Monocytes % (Manual) 4 Platelet Estimate Normal Target Cells Slight Sodium 138 Potassium 3.8 Chloride 101 Carbon Dioxide 29 Anion Gap 12 BUN 60 H Creatinine 2.2 H Est GFR ( Amer) 26 Est GFR (Non-Af Amer) 22 POC Glucose (mg/dL) 277 H Random Glucose 54 L D Calcium 8.4 L Total Bilirubin 0.3 AST 36 D ALT 54 H Alkaline Phosphatase 79 Total Creatine Kinase CK-MB (Mass) Troponin I Total Protein 6.3 Albumin 3.3 L Globulin 3.0 Albumin/Globulin Ratio 1.1
--- NOTE | 2018-02-25 18:30 | CARD ---
APPROVED REPORT Date of service: 02/24/2018 EKG Measurement Heart [id number] <Conclusion> Sinus rhythm with occasional ventricular-paced complexes Left axis deviation Left bundle branch block Abnormal ECG
--- NOTE | 2018-02-25 21:15 | CP.PCM.PN ---
Subjective - Date & Time of Evaluation Date of Evaluation: 02/25/18 Time of Evaluation: 09:15 - Subjective Subjective: clinically same Objective - Vital Signs/Intake and Output Vital Signs (last 24 hours): Temp Pulse Resp BP Pulse Ox 97.9 F 92 H 18 162/74 H 98 02/25/18 15:00 02/25/18 17:51 02/25/18 15:00 02/25/18 17:51 02/25/18 15:00 - Medications Medications: Current Medications Albuterol/Ipratropium (Duoneb 3 Mg/0.5 Mg (3 Ml) Ud) 3 ml INH RQ6 [facility] Last Admin: 02/25/18 19:25 Dose: 3 ml Amlodipine Besylate (Norvasc) 10 mg PO DAILY [facility] Last Admin: 02/25/18 10:50 Dose: 10 mg Aspirin (Aspirin) 325 mg PO DAILY [facility] Last Admin: 02/25/18 10:55 Dose: 325 mg Carvedilol (Coreg) 3.125 mg PO BID [facility] Last Admin: 02/25/18 17:50 Dose: 3.125 mg Clopidogrel Bisulfate (Plavix) 75 mg PO DAILY [facility] Last Admin: 02/25/18 16:05 Dose: 75 mg Ergocalciferol (Drisdol 50,000 Intl Units Cap) 1 cap PO QWK [facility] Furosemide (Lasix) 40 mg IVP DAILY [facility] Last Admin: 02/25/18 10:50 Dose: 40 mg Glimepiride (Amaryl) 4 mg PO BID [facility] Last Admin: 02/25/18 17:50 Dose: 4 mg Heparin Sodium (Porcine) (Heparin) 5,000 units SC Q12 [facility] Last Admin: 02/25/18 14:48 Dose: 5,000 units Hydrochlorothiazide (Microzide) 12.5 mg PO DAILY [facility] Last Admin: 02/25/18 10:50 Dose: 12.5 mg Ceftriaxone Sodium 1 gm/ (Sodium Chloride) 100 mls @ 100 mls/hr IVPB Q24H [facility]; Protocol Last Admin: 02/24/18 20:41 Dose: 100 mls/hr Insulin Glargine (Lantus) 25 unit SC DAILY [facility] Last Admin: 02/25/18 10:49 Dose: 25 units Losartan Potassium (Cozaar) 50 mg PO DAILY [facility] Last Admin: 02/25/18 10:50 Dose: 50 mg Methylprednisolone (Solu-Medrol) 40 mg IVP Q8H [facility] Last Admin: 02/25/18 17:50 Dose: 40 mg Rosuvastatin Calcium (Crestor) 5 mg PO HS [facility] Last Admin: 02/24/18 21:36 Dose: 5 mg - Labs Labs: 02/25/18 13:09 02/25/18 14:18
[2018-02-26] MEDS: Albuterol-Ipratrop 3 mg / 0.5 (3 ml) UD INH SCH ×5 (01:25→19:50)
--- NOTE | 2018-02-26 01:34 | CON ---
DATE: 02/25/2018 REASON FOR CONSULTATION: Altered mental status as well as borderline troponin elevation. HISTORY OF PRESENT ILLNESS: The patient is a 77-year-old female, who has history of diabetes mellitus, chronic renal insufficiency, who was recently discharged two days ago, on [place], after she was treated for pneumonia. The patient's workup included an echocardiogram which was consistent with normal left ventricular systolic function and severe pulmonary hypertension. Apparently, the patient was discharged home, to be found by her daughter to be lethargic and poorly responsive. At this time, the patient is slightly sluggish but awake and oriented, and she denies any chest pain. There was no reported shortness of breath. SOCIAL HISTORY: Nonsmoker, nondrinker. She lives by herself. The patient's EKG on last admission revealed sinus tachycardia with left bundle branch block. MEDICATIONS: Amaryl 4 mg p.o. twice a day, aspirin 325 mg once a day, Rocephin 1 g intravenously daily, Cozaar 50 mg daily, Crestor 5 mg once a day, heparin 5000 units every 8 hours, Lasix 40 mg intravenously once a day, hydrochlorothiazide 12.5 mg once a day, Norvasc 10 mg once a day, and Solu-Medrol 40 mg intravenously every 8 hours. PHYSICAL EXAMINATION: GENERAL: The patient is an elderly female, who does not appear to be in acute distress. VITAL SIGNS: Blood pressure 150/79, heart rate 83, temperature 98, and respirations 20. HEENT: Normocephalic. CHEST: Minimal rhonchi. HEART: S1 and S2, regular. ABDOMEN: Soft. EXTREMITIES: 1-2+ pitting edema. LABORATORY DATA: Today CBC: WBC 18.5, hemoglobin 12.9, hematocrit 40.2, and platelet count 265,000. Today's SMA-7: Sodium 136, potassium 4.9, chloride 101, CO2 of 26, glucose 106, BUN 72, and creatinine 2.3. Troponins were as follows: 0.227, 0.21, and 0.205. Admitting EKG revealed sinus rhythm at rate of 87 with left bundle branch block. Chest x-ray was unremarkable. Head CT scan without contrast, age appropriate related neurogenic findings, no definite acute intracranial finding. Recent venous Doppler lower extremity on 02/17/2018, no evidence of DVT. ASSESSMENT: 1. Altered mental status, rule out underlying sepsis, and most recent blood culture during the patient's admission was negative after 5 days. 2. Borderline troponin elevation and left bundle branch block, consider mild myocardial injury. At this time, the patient has been chest pain free, and a recent echocardiogram did not reveal segmental hypokinesis. 3. Chronic renal insufficiency. 4. Severe pulmonary hypertension and right-sided failure. RECOMMENDATIONS: Continue current Amaryl 4 mg twice a day, aspirin 325 mg once a day, Crestor 5 mg once a day, Cozaar 50 mg once a day. Discontinue intervenous Lasix. Continue hydrochlorothiazide at 12.5 mg once a day and Norvasc 10 mg once a day, Solu-Medrol 40 mg intravenously every 8 hours. Start Coreg at 3.125 mg twice a day. Obtain two more sets of blood cultures as well as urine cultures. The case was discussed in detail with the patient's daughter. Invasive cardiac workup will not be justified at this time, unless there is chest pain or significant troponin elevation. Ryan Vidal MD
[2018-02-26] MEDS: MethylPREDNISolone 40 mg Vial IVP SCH ×3 (02:02→17:36)
[2018-02-26 06:21] LABS: BASO % 0.2 % (0.0-2.0); HEMOGLOBIN 12.3 g/dL (11.0-16.0); LYMPH # 1.7 K/uL (1.0-4.3); MEAN CORPUSCULAR HEMOGLOBIN 26.1 pg (27.0-31.0); MEAN CORPUSCULAR HGB CONC 31.8 g/dL (33.0-37.0); MEAN PLATELET VOLUME 10.1 fL (7.2-11.7); MONO # 0.3 K/uL (0.0-0.8); MONO % 1.6 % (0.0-10.0); NEUT # 14.9 K/uL (1.8-7.0); NEUT % 88.2 % (50.0-75.0); RBC 4.72 Mil/uL (3.80-5.20); RED CELL DISTRIBUTION WIDTH 14.1 % (11.5-14.5); WHITE BLOOD COUNT 16.9 K/uL (4.8-10.8)
[2018-02-26 07:37] LABS: ALB/GLOB RATIO 1.1 (1.0-2.1); CALCIUM 7.9 mg/dl (8.6-10.4)
[2018-02-26] MEDS: (Lantus) Insulin Glargine, Recombinant SC SCH (09:23)
[2018-02-26 12:34] VITALS: RESP 20
--- NOTE | 2018-02-26 13:47 | CP.PCM.PN ---
Subjective - Date & Time of Evaluation Date of Evaluation: 02/26/18 Time of Evaluation: 09:45 - Subjective Subjective: clinically same Objective - Vital Signs/Intake and Output Vital Signs (last 24 hours): Temp Pulse Resp BP Pulse Ox 97.9 F 77 20 168/81 H 95 02/26/18 07:00 02/26/18 07:00 02/26/18 07:00 02/26/18 07:00 02/26/18 07:00 - Medications Medications: Current Medications Albuterol/Ipratropium (Duoneb 3 Mg/0.5 Mg (3 Ml) Ud) 3 ml INH RQ6 [facility] Last Admin: 02/26/18 07:35 Dose: Not Given Amlodipine Besylate (Norvasc) 10 mg PO DAILY [facility] Last Admin: 02/26/18 09:27 Dose: 10 mg Aspirin (Aspirin) 325 mg PO DAILY [facility] Last Admin: 02/26/18 09:37 Dose: 325 mg Carvedilol (Coreg) 3.125 mg PO BID [facility] Last Admin: 02/26/18 09:27 Dose: 3.125 mg Clopidogrel Bisulfate (Plavix) 75 mg PO DAILY [facility] Last Admin: 02/26/18 09:27 Dose: 75 mg Ergocalciferol (Drisdol 50,000 Intl Units Cap) 1 cap PO QWK [facility] Furosemide (Lasix) 40 mg IVP DAILY [facility] Last Admin: 02/25/18 10:50 Dose: 40 mg Glimepiride (Amaryl) 4 mg PO BID [facility] Last Admin: 02/26/18 09:27 Dose: 4 mg Heparin Sodium (Porcine) (Heparin) 5,000 units SC Q12 [facility] Last Admin: 02/26/18 09:25 Dose: 5,000 units Hydrochlorothiazide (Microzide) 12.5 mg PO DAILY [facility] Last Admin: 02/26/18 09:27 Dose: 12.5 mg Ceftriaxone Sodium 1 gm/ (Sodium Chloride) 100 mls @ 100 mls/hr IVPB Q24H [facility]; Protocol Last Admin: 02/25/18 20:30 Dose: 100 mls/hr Insulin Glargine (Lantus) 25 unit SC DAILY [facility] Last Admin: 02/26/18 09:23 Dose: 25 units Losartan Potassium (Cozaar) 50 mg PO DAILY [facility] Last Admin: 02/26/18 09:27 Dose: 50 mg Methylprednisolone (Solu-Medrol) 40 mg IVP Q8H [facility] Last Admin: 02/26/18 09:32 Dose: 40 mg Rosuvastatin Calcium (Crestor) 5 mg PO HS [facility] Last Admin: 02/25/18 22:45 Dose: 5 mg - Labs Labs: 02/26/18 06:17 02/26/18 06:17
[2018-02-26] MEDS: (Novolin R) Insulin Human Regular 100 units/ml vial SC SCH ×2 (16:44→21:41)
--- NOTE | 2018-02-26 17:57 | CP.PCM.PN ---
Subjective - Date & Time of Evaluation Date of Evaluation: 02/26/18 Time of Evaluation: 17:57 Objective - Vital Signs/Intake and Output Vital Signs (last 24 hours): Temp Pulse Resp BP Pulse Ox 98.0 F 78 20 158/73 H 96 02/26/18 15:00 02/26/18 16:07 02/26/18 15:00 02/26/18 15:00 02/26/18 15:00 Intake and Output: 02/26/18 02/26/18 06:59 18:59 Intake Total 500 Balance 500 - Medications Medications: Current Medications Albuterol/Ipratropium (Duoneb 3 Mg/0.5 Mg (3 Ml) Ud) 3 ml INH RQ6 [facility] Last Admin: 02/26/18 13:50 Dose: Not Given Amlodipine Besylate (Norvasc) 10 mg PO DAILY [facility] Last Admin: 02/26/18 09:27 Dose: 10 mg Aspirin (Aspirin) 325 mg PO DAILY [facility] Last Admin: 02/26/18 09:37 Dose: 325 mg Carvedilol (Coreg) 3.125 mg PO BID [facility] Last Admin: 02/26/18 17:36 Dose: 3.125 mg Clopidogrel Bisulfate (Plavix) 75 mg PO DAILY [facility] Last Admin: 02/26/18 09:27 Dose: 75 mg Ergocalciferol (Drisdol 50,000 Intl Units Cap) 1 cap PO QWK [facility] Furosemide (Lasix) 40 mg IVP DAILY [facility] Last Admin: 02/25/18 10:50 Dose: 40 mg Glimepiride (Amaryl) 4 mg PO BID [facility] Last Admin: 02/26/18 17:36 Dose: 4 mg Heparin Sodium (Porcine) (Heparin) 5,000 units SC Q12 [facility] Last Admin: 02/26/18 09:25 Dose: 5,000 units Hydrochlorothiazide (Microzide) 12.5 mg PO DAILY [facility] Last Admin: 02/26/18 09:27 Dose: 12.5 mg Ceftriaxone Sodium 1 gm/ (Sodium Chloride) 100 mls @ 100 mls/hr IVPB Q24H [facility]; Protocol Last Admin: 02/25/18 20:30 Dose: 100 mls/hr Insulin Glargine (Lantus) 25 unit SC DAILY [facility] Last Admin: 02/26/18 09:23 Dose: 25 units Insulin Human Regular (Novolin R) 0 unit SC ACHS [facility]; Protocol Last Admin: 02/26/18 16:44 Dose: 6 units Losartan Potassium (Cozaar) 50 mg PO DAILY [facility] Last Admin: 02/26/18 09:27 Dose: 50 mg Methylprednisolone (Solu-Medrol) 40 mg IVP Q8H [facility] Last Admin: 02/26/18 17:36 Dose: 40 mg Rosuvastatin Calcium (Crestor) 5 mg PO HS [facility] Last Admin: 02/25/18 22:45 Dose: 5 mg - Labs Labs: 02/26/18 06:17 02/26/18 06:17
--- NOTE | 2018-02-26 19:10 | PN ---
DATE: 02/26/2018 SUBJECTIVE: The patient is mildly short of breath, but she denies any productive cough. No retrosternal chest pain. PHYSICAL EXAMINATION VITAL SIGNS: Blood pressure 168/81, heart rate 77, temperature 97.9, respirations 20. HEENT: Normocephalic. CHEST: Clear. HEART: S1 and S2 regular. EXTREMITIES: 1+ pitting edema. LABORATORY DATA: Today's SMA-7: Sodium 131, potassium 4, chloride 94, CO2 of 31, glucose 304, BUN 69, creatinine 2.1. Today's hemoglobin and hematocrit are 12.3 and 38.7, white count 16.9, platelet count 233,000. Blood cultures negative after 24 hours. ASSESSMENT: 1. Altered mental status. 2. Borderline troponin elevation, consider small myocardial infarction. 3. Chronic renal insufficiency. 4. Severe pulmonary hypertension and right-sided heart failure. RECOMMENDATIONS: Continue Amaryl 5 mg twice a day, aspirin 325 mg once a day, IV Rocephin 1 g daily, Coreg 3.125 mg twice a day, Cozaar 50 mg once a day, Crestor 5 mg once a day, subcutaneous heparin 5000 units every 12 hours, hydrochlorothiazide 12.5 mg once a day, Plavix 75 mg once a day, Norvasc 10 mg once a day, Solu-Medrol 40 mg intravenously every 8 hours. Case was discussed with the patient's family at the bedside. Consider approach for now in view of underlying renal insufficiency and the high likely possibility of contrast-induced nephropathy being caused by invasive cardiac catheterization. Ryan Vidal MD
[2018-02-26] MEDS ORDERED: (Novolin R) Insulin Human Regular 100 units/ml vial SC ONE (21:22)
[2018-02-26] MEDS ORDERED: Insulin Detemir 100 units/ml Vial (Levemir) SC STA (23:22)
[2018-02-27] MEDS: Albuterol-Ipratrop 3 mg / 0.5 (3 ml) UD INH SCH ×4 (01:42→20:25)
[2018-02-27] MEDS: MethylPREDNISolone 40 mg Vial IVP SCH ×3 (02:15→17:28)
--- NOTE | 2018-02-27 06:12 | CON ---
DATE: 02/26/2018 ENDOCRINOLOGY CONSULTATION LOCATION: Room 564. HISTORY OF PRESENT ILLNESS: This is a 77-year-old female with known history of type 2 insulin-requiring diabetes, presenting here with acute exacerbation of COPD with concomitant pneumonia and is now being referred for diabetic evaluation because of supervening marked hyperglycemic accelerations with the initiation of IV steroid therapy as given. PAST MEDICAL HISTORY: As mentioned above, history of type 2 insulin-requiring diabetes, currently on a combination of Amaryl given as 4 mg b.i.d. and Lantus given as 25 units in the morning and 60 units in the evening as given; history of chronic obstructive lung disease; history of nephrolithiasis; history of longstanding hypertension and dyslipidemia with underlying chronic kidney disease; history of diabetic polyneuropathy; and peripheral arterial vasculopathy. FAMILY HISTORY: Positive for diabetes and hypertension. SOCIAL HISTORY: The patient has a supportive family. No known substance use. REVIEW OF SYSTEMS: Admits to generalized body weakness with easy fatigability and tiredness, and suboptimal energy level. Also admits to episodic bouts of dizziness and lightheadedness, worse in the day of admission. No chest pain but admits to progressive shortness of breath initially on exertion and then at rest with paroxysmal nocturnal dyspnea. Her oral intake has been variable with nausea, dyspepsia and vague upper abdominal pain. Also admits to marked polyuria, nocturia, and polydipsia with lower extremity paresthesias. PHYSICAL EXAMINATION: GENERAL: This is an overweight female, in no apparent distress. VITAL SIGNS: With a blood pressure of 160/90, pulse of 100 beats per minute and regular, temperature 98, respirations 20. Height is 5 feet 2 inches. Weight is 167 pounds. HEENT: Head is normocephalic. Eyes anicteric with pink conjunctivae. Funduscopy is not possible at this time. Ears, nose, and throat otherwise normal. NECK: Supple. Thyroid gland is normal in size. No carotid bruits or any cervical adenopathy. CARDIOPULMONARY: Some adynamic precordium. S1 and S2 are rapid and regular. LUNGS: Show scattered rhonchi. ABDOMEN: Flat, soft with positive bowel sounds. EXTREMITIES: No peripheral edema. Pulses are +2 bilaterally. LABORATORY DATA: Chemistry showed a BUN of 69, sodium 131, potassium 4, chloride 94, CO2 of 31, glucose 304, and creatinine 2.1. Her glucose levels tonight have ranged from 286 to 444 and over 500 mg/dL. ASSESSMENT: This is a 77-year-old female with uncontrolled and decompensated type 2 insulin-requiring diabetes with transient marked hyperglycemic accelerations related to the intercurrent intravenous steroid therapy as given with impaired increased insulin resistance thereof. She also has diabetic microvascular complications of retinopathy, polyneuropathy, and nephropathy with underlying chronic kidney disease. Moreover, she also has diabetic macrovascular complications of coronary artery disease and peripheral arterial disease and vasculopathy. PLAN OF MANAGEMENT: We will intensify her insulin regimen to optimize metabolic control especially with her transient hyperglycemic accelerations as noted thereof. We will add Lantus given as 60 units subcu at bedtime daily to start tomorrow night and tonight we will give her a stat dose of Lantus 40 units subcu as ordered. We will also discontinue the morning Lantus as this is a long-acting 24-hour dose regimen as given. We will add prandial insulin, however, with NovoLog to be given as 30 units subcu t.i.d. before meals as added. We will modify the coverage scale to obviate hypoglycemia and detailed orders have been given. We will obtain a hemoglobin A1c to confirm her prior glycemic control and baseline thyroid function studies will be ordered. We will follow and advise accordingly. Yary Pendleton MD
[2018-02-27 07:15] LABS: BASO # 0.1 K/uL (0.0-0.2); BASO % 0.2 % (0.0-2.0); LYMPH # 2.1 K/uL (1.0-4.3); LYMPH % 9.9 % (20.0-40.0); MEAN CELL VOLUME 81.7 fL (81.0-99.0); MEAN CORPUSCULAR HEMOGLOBIN 26.8 pg (27.0-31.0); MEAN CORPUSCULAR HGB CONC 32.8 g/dL (33.0-37.0); MEAN PLATELET VOLUME 10.2 fL (7.2-11.7); MONO # 0.9 K/uL (0.0-0.8); NEUT # 18.3 K/uL (1.8-7.0); NEUT % 85.9 % (50.0-75.0); PLATELET COUNT 239 K/uL (130-400); RBC 4.49 Mil/uL (3.80-5.20); RED CELL DISTRIBUTION WIDTH 13.4 % (11.5-14.5); WHITE BLOOD COUNT 21.3 K/uL (4.8-10.8)
[2018-02-27 07:37] LABS: ALB/GLOB RATIO 1.2 (1.0-2.1); ALBUMIN 3.2 g/dL (3.5-5.0)
[2018-02-27] MEDS: (Novolog) Insulin Aspart, Recombinant 100 u/ml 10 ml vial SC SCH ×7 (08:36→21:37)
[2018-02-27 08:49] LABS: BANDS 1 % (0-2); LARGE PLATELETS PRESENT; LYMPHOCYTE 9 % (20-40); MONOCYTE 3 % (0-10); MYELOCYTE 1 % (0-0); NEUTROPHIL 86 % (50-75); PLATELET ESTIMATE NORMAL (NORMAL); TOTAL CELLS COUNTED 100
--- NOTE | 2018-02-27 15:58 | PN ---
DATE: 02/27/2018 SUBJECTIVE: The patient denies any chest pain, shortness of breath has improved. She is still experiencing leg swelling. PHYSICAL EXAMINATION: VITAL SIGNS: Blood pressure 159/70, heart rate 80, temperature 98.6, respirations 20, HEENT: Normocephalic. CHEST: Minimal basilar rhonchi. HEART: S1, S2 regular. EXTREMITIES: 2+ pitting edema. LABORATORY DATA: Hemoglobin and hematocrit 12 and 36.7. White count 21.3, platelet count 239,000. Today's BUN and creatinine 74 and 2.4 respectively. Sodium is 130, glucose 172. ASSESSMENT: 1. Non-ST elevation myocardial infarction. 2. Chronic renal insufficiency. 3. Uncontrolled diabetes mellitus. 4. Hyponatremia. 5. Rule out underlying sepsis. RECOMMENDATIONS: Continue aspirin 325 mg once a day, Rocephin 1 g intravenously, Coreg 3.125 mg twice a day, Cozaar 50 mg daily Crestor 5 mg once a day and I will administer one dose of Lasix 40 mg IV push today and continue hydrochlorothiazide 12.5 mg daily. Discontinue dietary sodium restriction. Ryan Vidal MD
--- NOTE | 2018-02-27 16:02 | CP.PCM.PN ---
Subjective - Date & Time of Evaluation Date of Evaluation: 02/27/18 Time of Evaluation: 16:02 Objective - Vital Signs/Intake and Output Vital Signs (last 24 hours): Temp Pulse Resp BP Pulse Ox 98.5 F 78 20 166/75 H 98 02/27/18 15:51 02/27/18 15:51 02/27/18 15:51 02/27/18 15:51 02/27/18 15:51 Intake and Output: 02/27/18 02/27/18 06:59 18:59 Intake Total 130 Balance 130 - Medications Medications: Current Medications Albuterol/Ipratropium (Duoneb 3 Mg/0.5 Mg (3 Ml) Ud) 3 ml INH RQ6 [facility] Last Admin: 02/27/18 13:30 Dose: 3 ml Amlodipine Besylate (Norvasc) 10 mg PO DAILY [facility] Last Admin: 02/27/18 09:52 Dose: 10 mg Aspirin (Aspirin) 325 mg PO DAILY [facility] Last Admin: 02/27/18 09:51 Dose: 325 mg Carvedilol (Coreg) 3.125 mg PO BID [facility] Last Admin: 02/27/18 09:51 Dose: 3.125 mg Clopidogrel Bisulfate (Plavix) 75 mg PO DAILY [facility] Last Admin: 02/27/18 09:51 Dose: 75 mg Ergocalciferol (Drisdol 50,000 Intl Units Cap) 1 cap PO QWK [facility] Furosemide (Lasix) 40 mg IVP DAILY [facility] Last Admin: 02/25/18 10:50 Dose: 40 mg Glimepiride (Amaryl) 4 mg PO BID [facility] Last Admin: 02/27/18 09:51 Dose: 4 mg Heparin Sodium (Porcine) (Heparin) 5,000 units SC Q12 [facility] Last Admin: 02/27/18 09:52 Dose: 5,000 units Hydrochlorothiazide (Microzide) 12.5 mg PO DAILY [facility] Last Admin: 02/27/18 09:51 Dose: 12.5 mg Ceftriaxone Sodium 1 gm/ (Sodium Chloride) 100 mls @ 100 mls/hr IVPB Q24H [facility]; Protocol Last Admin: 02/26/18 19:41 Dose: 100 mls/hr Insulin Aspart (Novolog) 30 unit SC AC [facility] Last Admin: 02/27/18 12:42 Dose: 30 unit Insulin Aspart (Novolog) 0 unit SC ACHS [facility] Last Admin: 02/27/18 11:34 Dose: Not Given Insulin Glargine (Lantus) 60 unit SC [facility] Losartan Potassium (Cozaar) 50 mg PO DAILY [facility] Last Admin: 02/27/18 09:51 Dose: 50 mg Methylprednisolone (Solu-Medrol) 40 mg IVP Q8H [facility] Last Admin: 02/27/18 09:52 Dose: 40 mg Rosuvastatin Calcium (Crestor) 5 mg PO [facility] Last Admin: 02/26/18 21:40 Dose: 5 mg - Labs Labs: 02/27/18 07:07 02/27/18 07:07
[2018-02-27] MEDS ORDERED: Glucagon Recombinant 1 mg Inj IM PRN (16:14)
[2018-02-27] MEDS ORDERED: Dextrose 50% SYRINGE Inj (50 ml) IV PRN (16:14)
--- NOTE | 2018-02-27 19:00 | PN ---
DATE: 02/27/2018 ENDOCRINOLOGY FOLLOWUP NOTE LOCATION: In room 564. SUBJECTIVE: This is a 77-year-old female with recent uncontrolled type 2 insulin requiring diabetes, presenting here with extremes of glycemic fluctuations from hypoglycemia to marked hyperglycemic accelerations with the initiation of IV steroid therapy as given. Her glucose values overnight are fluctuating, but improved and have ranged from 141 to 170 and 394 mg/dL. LABORATORY DATA: Her chemistry shows a BUN of 74, sodium 130, potassium 3.7, chloride 95, CO2 of 28, glucose 172, and creatinine 2.2. Her hemoglobin A1c is 8.6%, which was elevated and indicative of suboptimal metabolic control of her diabetic condition. ASSESSMENT: This is a 77-year-old female with uncontrolled and decompensated type 2 insulin requiring diabetes, presenting here with symptomatic hypoglycemia and supervening hyperglycemic accelerations with the initiation of intravenous steroid therapy as transiently given. PLAN OF MANAGEMENT: We will continue the same modified basal and bolus insulin regimen as given with Novolog given as 30 units subcutaneously t.i.d. before meals as ordered. We will continue also the Lantus given as basal insulin at 60 units subcutaneously at bedtime daily as given. She is currently on Solu-Medrol given as 40 mg IV every 8 hours as ordered. As the steroids are tapered down, then we will also taper down her insulin regimen accordingly. She was actually taking a basal dose of insulin with Lantus given twice a day at home as noted. We will continue the prandial insulin, which actually helps out with the post meal accelerations of the glucose values as expected. We will follow. Yary Pendleton MD
--- NOTE | 2018-02-27 21:14 | CP.PCM.PN ---
Subjective - Date & Time of Evaluation Date of Evaluation: 02/27/18 Time of Evaluation: 09:15 - Subjective Subjective: clinically same Objective - Vital Signs/Intake and Output Vital Signs (last 24 hours): Temp Pulse Resp BP Pulse Ox 98.5 F 79 20 166/75 H 98 02/27/18 15:51 02/27/18 16:00 02/27/18 15:51 02/27/18 15:51 02/27/18 15:51 - Medications Medications: Current Medications Albuterol/Ipratropium (Duoneb 3 Mg/0.5 Mg (3 Ml) Ud) 3 ml INH RQ6 [facility] Last Admin: 02/27/18 13:30 Dose: 3 ml Amlodipine Besylate (Norvasc) 10 mg PO DAILY [facility] Last Admin: 02/27/18 09:52 Dose: 10 mg Aspirin (Aspirin) 325 mg PO DAILY [facility] Last Admin: 02/27/18 09:51 Dose: 325 mg Carvedilol (Coreg) 3.125 mg PO BID [facility] Last Admin: 02/27/18 17:28 Dose: 3.125 mg Clopidogrel Bisulfate (Plavix) 75 mg PO DAILY [facility] Last Admin: 02/27/18 09:51 Dose: 75 mg Dextrose (Glutose 15) 0 gm PO ONCE PRN; Protocol PRN Reason: Hypoglycemia Protocol Last Admin: 02/27/18 16:41 Dose: 15 gm Dextrose (Dextrose 50% Inj) 0 ml IV STAT PRN; Protocol PRN Reason: Hypoglycemia Protocol Last Admin: 02/27/18 16:30 Dose: 50 ml Ergocalciferol (Drisdol 50,000 Intl Units Cap) 1 cap PO QWK [facility] Furosemide (Lasix) 40 mg IVP DAILY [facility] Last Admin: 02/25/18 10:50 Dose: 40 mg Glimepiride (Amaryl) 4 mg PO BID [facility] Last Admin: 02/27/18 17:15 Dose: Not Given Glucagon (Glucagen Diagnostic Kit) 0 mg IM STAT PRN; Protocol PRN Reason: Hypoglycemia Protocol Heparin Sodium (Porcine) (Heparin) 5,000 units SC Q12 [facility] Last Admin: 02/27/18 09:52 Dose: 5,000 units Hydrochlorothiazide (Microzide) 12.5 mg PO DAILY [facility] Last Admin: 02/27/18 09:51 Dose: 12.5 mg Ceftriaxone Sodium 1 gm/ (Sodium Chloride) 100 mls @ 100 mls/hr IVPB Q24H [facility]; Protocol Last Admin: 02/27/18 19:11 Dose: 100 mls/hr Dextrose (Dextrose 5% In Water 1000 Ml) 1,000 mls @ 0 mls/hr IV .Q0M PRN; Protocol PRN Reason: Hypoglycemia Protocol Insulin Aspart (Novolog) 0 unit SC ACHS [facility] Last Admin: 02/27/18 16:42 Dose: Not Given Insulin Aspart (Novolog) 10 unit SC AC [facility] Insulin Glargine (Lantus) 20 unit SC HS [facility] Losartan Potassium (Cozaar) 50 mg PO DAILY [facility] Last Admin: 02/27/18 09:51 Dose: 50 mg Methylprednisolone (Solu-Medrol) 40 mg IVP Q8H [facility] Last Admin: 02/27/18 17:28 Dose: 40 mg Rosuvastatin Calcium (Crestor) 5 mg PO HS [facility] Last Admin: 02/26/18 21:40 Dose: 5 mg - Labs Labs: 02/27/18 07:07 02/27/18 07:07
[2018-02-27] MEDS ORDERED: (Lantus) Insulin Glargine, Recombinant SC SCH ×2 (22:00)
[2018-02-28] MEDS: Albuterol-Ipratrop 3 mg / 0.5 (3 ml) UD INH SCH ×4 (01:25→20:10)
[2018-02-28] MEDS: MethylPREDNISolone 40 mg Vial IVP SCH ×3 (02:58→21:25)
[2018-02-28] MEDS ORDERED: (Novolog) Insulin Aspart, Recombinant 100 u/ml 10 ml vial SC SCH ×3 (07:30→16:30)
[2018-02-28] MEDS: (Novolog) Insulin Aspart, Recombinant 100 u/ml 10 ml vial SC SCH ×4 (08:01→21:26)
[2018-02-28] MEDS ORDERED: MethylPREDNISolone 40 mg Vial IVP SCH (13:30)
--- NOTE | 2018-02-28 17:37 | PN ---
DATE: 02/28/2018 SUBJECTIVE: The patient denies chest pain. PHYSICAL EXAMINATION: VITAL SIGNS: Blood pressure 138/69, heart rate 76, temperature 98.2, and respirations 20, HEENT: Normocephalic. CHEST: Minimal basilar rhonchi. HEART: S1 and S2 regular. ABDOMEN: Soft. EXTREMITIES: 1+ pitting edema. LABORATORY DATA: Today's blood sugars are 350, 254, and 376. ASSESSMENT: 1. Non-ST elevation myocardial infarction. 2. Chronic renal insufficiency. 3. Uncontrolled diabetes mellitus. 4. Consider underlying pneumonia. RECOMMENDATIONS: Continue current Amaryl 4 mg twice a day, aspirin 325 mg once a day, Rocephin 1 g intravenously daily, Cozaar 50 mg once a day, Coreg 3.125 mg twice a day, Crestor 5 mg daily, subcutaneous heparin 5000 units every 12 hours, Lasix 40 mg intravenously daily, hydrochlorothiazide 12.5 mg daily, Norvasc 10 mg once a day, Plavix 75 mg once a day, and Solu-Medrol 40 mg intravenously every 12 hours. Obtain BMP in the a.m. Ryan Vidal MD
--- NOTE | 2018-02-28 17:42 | CP.PCM.PN ---
Objective - Vital Signs/Intake and Output Vital Signs (last 24 hours): Temp Pulse Resp BP Pulse Ox 98 F 75 20 139/54 L 95 02/28/18 15:46 02/28/18 15:46 02/28/18 15:46 02/28/18 15:46 02/28/18 15:46 Intake and Output: 02/28/18 02/28/18 06:59 18:59 Intake Total 120 Balance 120 - Medications Medications: Current Medications Albuterol/Ipratropium (Duoneb 3 Mg/0.5 Mg (3 Ml) Ud) 3 ml INH RQ6 [facility] Last Admin: 02/28/18 13:49 Dose: 3 ml Amlodipine Besylate (Norvasc) 10 mg PO DAILY [facility] Last Admin: 02/28/18 10:26 Dose: 10 mg Aspirin (Aspirin) 325 mg PO DAILY [facility] Last Admin: 02/28/18 10:26 Dose: 325 mg Carvedilol (Coreg) 3.125 mg PO BID [facility] Last Admin: 02/28/18 10:26 Dose: 3.125 mg Clopidogrel Bisulfate (Plavix) 75 mg PO DAILY [facility] Last Admin: 02/28/18 10:25 Dose: 75 mg Dextrose (Glutose 15) 0 gm PO ONCE PRN; Protocol PRN Reason: Hypoglycemia Protocol Last Admin: 02/27/18 16:41 Dose: 15 gm Dextrose (Dextrose 50% Inj) 0 ml IV STAT PRN; Protocol PRN Reason: Hypoglycemia Protocol Last Admin: 02/27/18 16:30 Dose: 50 ml Ergocalciferol (Drisdol 50,000 Intl Units Cap) 1 cap PO QWK [facility] Furosemide (Lasix) 40 mg IVP DAILY [facility] Last Admin: 02/28/18 14:03 Dose: 40 mg Glimepiride (Amaryl) 4 mg PO BID [facility] Last Admin: 02/28/18 10:26 Dose: 4 mg Glucagon (Glucagen Diagnostic Kit) 0 mg IM STAT PRN; Protocol PRN Reason: Hypoglycemia Protocol Heparin Sodium (Porcine) (Heparin) 5,000 units SC Q12 [facility] Last Admin: 02/28/18 10:26 Dose: 5,000 units Hydrochlorothiazide (Microzide) 12.5 mg PO DAILY [facility] Last Admin: 02/28/18 10:26 Dose: 12.5 mg Ceftriaxone Sodium 1 gm/ (Sodium Chloride) 100 mls @ 100 mls/hr IVPB Q24H [facility]; Protocol Last Admin: 02/27/18 19:11 Dose: 100 mls/hr Dextrose (Dextrose 5% In Water 1000 Ml) 1,000 mls @ 0 mls/hr IV .Q0M PRN; Protocol PRN Reason: Hypoglycemia Protocol Insulin Aspart (Novolog) 0 unit SC ACHS [facility] Last Admin: 02/28/18 14:02 Dose: 4 units Insulin Aspart (Novolog) 20 unit SC AC [facility] Insulin Glargine (Lantus) 30 unit SC HS [facility] Losartan Potassium (Cozaar) 50 mg PO DAILY [facility] Last Admin: 02/28/18 10:25 Dose: 50 mg Methylprednisolone (Solu-Medrol) 40 mg IVP Q12H [facility] Rosuvastatin Calcium (Crestor) 5 mg PO HS [facility] Last Admin: 02/27/18 21:35 Dose: 5 mg - Labs Labs: 02/27/18 07:07 02/27/18 07:07
--- NOTE | 2018-02-28 21:26 | CP.PCM.PN ---
Subjective - Date & Time of Evaluation Date of Evaluation: 02/28/18 Time of Evaluation: 08:45 - Subjective Subjective: clinically same Objective - Vital Signs/Intake and Output Vital Signs (last 24 hours): Temp Pulse Resp BP Pulse Ox 98 F 79 20 124/69 95 02/28/18 15:46 02/28/18 18:35 02/28/18 15:46 02/28/18 18:35 02/28/18 15:46 - Medications Medications: Current Medications Albuterol/Ipratropium (Duoneb 3 Mg/0.5 Mg (3 Ml) Ud) 3 ml INH RQ6 [facility] Last Admin: 02/28/18 20:10 Dose: Not Given Amlodipine Besylate (Norvasc) 10 mg PO DAILY [facility] Last Admin: 02/28/18 10:26 Dose: 10 mg Aspirin (Aspirin) 325 mg PO DAILY [facility] Last Admin: 02/28/18 10:26 Dose: 325 mg Carvedilol (Coreg) 3.125 mg PO BID [facility] Last Admin: 02/28/18 18:28 Dose: 3.125 mg Clopidogrel Bisulfate (Plavix) 75 mg PO DAILY [facility] Last Admin: 02/28/18 10:25 Dose: 75 mg Dextrose (Glutose 15) 0 gm PO ONCE PRN; Protocol PRN Reason: Hypoglycemia Protocol Last Admin: 02/27/18 16:41 Dose: 15 gm Dextrose (Dextrose 50% Inj) 0 ml IV STAT PRN; Protocol PRN Reason: Hypoglycemia Protocol Last Admin: 02/27/18 16:30 Dose: 50 ml Ergocalciferol (Drisdol 50,000 Intl Units Cap) 1 cap PO QWK [facility] Furosemide (Lasix) 40 mg IVP DAILY [facility] Last Admin: 02/28/18 14:03 Dose: 40 mg Glimepiride (Amaryl) 4 mg PO BID [facility] Last Admin: 02/28/18 18:28 Dose: 4 mg Glucagon (Glucagen Diagnostic Kit) 0 mg IM STAT PRN; Protocol PRN Reason: Hypoglycemia Protocol Heparin Sodium (Porcine) (Heparin) 5,000 units SC Q12 [facility] Last Admin: 02/28/18 10:26 Dose: 5,000 units Hydrochlorothiazide (Microzide) 12.5 mg PO DAILY [facility] Last Admin: 02/28/18 10:26 Dose: 12.5 mg Ceftriaxone Sodium 1 gm/ (Sodium Chloride) 100 mls @ 100 mls/hr IVPB Q24H [facility]; Protocol Last Admin: 02/28/18 18:30 Dose: 100 mls/hr Dextrose (Dextrose 5% In Water 1000 Ml) 1,000 mls @ 0 mls/hr IV .Q0M PRN; Protocol PRN Reason: Hypoglycemia Protocol Insulin Aspart (Novolog) 0 unit SC ACHS [facility] Last Admin: 02/28/18 18:28 Dose: 6 units Insulin Aspart (Novolog) 20 unit SC AC [facility] Last Admin: 02/28/18 18:29 Dose: 20 unit Insulin Glargine (Lantus) 30 unit SC HS [facility] Losartan Potassium (Cozaar) 50 mg PO DAILY [facility] Last Admin: 02/28/18 10:25 Dose: 50 mg Methylprednisolone (Solu-Medrol) 40 mg IVP Q12H [facility] Rosuvastatin Calcium (Crestor) 5 mg PO HS [facility] Last Admin: 02/27/18 21:35 Dose: 5 mg - Labs Labs: 02/27/18 07:07 02/27/18 07:07
[2018-02-28] MEDS ORDERED: (Lantus) Insulin Glargine, Recombinant SC SCH ×2 (22:00)
[2018-03-01] MEDS: Albuterol-Ipratrop 3 mg / 0.5 (3 ml) UD INH SCH ×3 (03:24→13:29)
[2018-03-01] MEDS: (Novolog) Insulin Aspart, Recombinant 100 u/ml 10 ml vial SC SCH ×4 (07:53→13:13)
[2018-03-01 08:05] VITALS: TEMP 98.3; O2SAT 97
[2018-03-01 09:01] LABS: CALCIUM 7.9 mg/dl (8.6-10.4)
[2018-03-01] MEDS: MethylPREDNISolone 40 mg Vial IVP SCH (11:18)
--- NOTE | 2018-03-01 13:06 | CP.PCM.PN ---
Subjective - Date & Time of Evaluation Date of Evaluation: 03/01/18 Time of Evaluation: 13:06 Objective - Vital Signs/Intake and Output Vital Signs (last 24 hours): Temp Pulse Resp BP Pulse Ox 98.3 F 93 H 20 181/79 H 97 03/01/18 07:00 03/01/18 11:14 03/01/18 07:00 03/01/18 11:18 03/01/18 07:00 - Medications Medications: Current Medications Albuterol/Ipratropium (Duoneb 3 Mg/0.5 Mg (3 Ml) Ud) 3 ml INH RQ6 [facility] Last Admin: 03/01/18 08:21 Dose: 3 ml Amlodipine Besylate (Norvasc) 10 mg PO DAILY [facility] Last Admin: 03/01/18 11:17 Dose: 10 mg Aspirin (Aspirin) 325 mg PO DAILY [facility] Last Admin: 03/01/18 11:17 Dose: 325 mg Carvedilol (Coreg) 3.125 mg PO BID [facility] Last Admin: 03/01/18 11:17 Dose: 3.125 mg Clopidogrel Bisulfate (Plavix) 75 mg PO DAILY [facility] Last Admin: 03/01/18 11:17 Dose: 75 mg Dextrose (Glutose 15) 0 gm PO ONCE PRN; Protocol PRN Reason: Hypoglycemia Protocol Last Admin: 02/27/18 16:41 Dose: 15 gm Dextrose (Dextrose 50% Inj) 0 ml IV STAT PRN; Protocol PRN Reason: Hypoglycemia Protocol Last Admin: 02/27/18 16:30 Dose: 50 ml Ergocalciferol (Drisdol 50,000 Intl Units Cap) 1 cap PO QWK [facility] Glimepiride (Amaryl) 4 mg PO BID [facility] Last Admin: 03/01/18 11:17 Dose: 4 mg Glucagon (Glucagen Diagnostic Kit) 0 mg IM STAT PRN; Protocol PRN Reason: Hypoglycemia Protocol Heparin Sodium (Porcine) (Heparin) 5,000 units SC Q12 [facility] Last Admin: 03/01/18 11:17 Dose: 5,000 units Hydrochlorothiazide (Microzide) 12.5 mg PO DAILY [facility] Last Admin: 03/01/18 11:17 Dose: 12.5 mg Ceftriaxone Sodium 1 gm/ (Sodium Chloride) 100 mls @ 100 mls/hr IVPB Q24H [facility]; Protocol Last Admin: 02/28/18 18:30 Dose: 100 mls/hr Dextrose (Dextrose 5% In Water 1000 Ml) 1,000 mls @ 0 mls/hr IV .Q0M PRN; Protocol PRN Reason: Hypoglycemia Protocol Insulin Aspart (Novolog) 0 unit SC ACHS [facility] Last Admin: 03/01/18 11:54 Dose: Not Given Insulin Aspart (Novolog) 30 unit SC AC [facility] Last Admin: 03/01/18 07:53 Dose: Not Given Insulin Glargine (Lantus) 44 unit SC [facility] Losartan Potassium (Cozaar) 50 mg PO DAILY [facility] Last Admin: 03/01/18 11:17 Dose: 50 mg Methylprednisolone (Solu-Medrol) 40 mg IVP Q12H [facility] Last Admin: 03/01/18 11:18 Dose: 40 mg Rosuvastatin Calcium (Crestor) 5 mg PO [facility] Last Admin: 02/28/18 21:25 Dose: 5 mg - Labs Labs: 02/27/18 07:07 03/01/18 08:17
[2018-03-01 15:55] VITALS: BP 126/71; PULSE 74
[2018-03-01] MEDS ORDERED: (Novolog) Insulin Aspart, Recombinant 100 u/ml 10 ml vial SC SCH ×2 (16:30)
--- NOTE | 2018-03-01 19:57 | PN ---
DATE: 03/01/2018 ENDO FOLLOWUP NOTE LOCATION: Room 564. SUBJECTIVE: This is a 77-year-old female presenting here with acute exacerbation of COPD and progressive shortness of breath, had been started on IV steroid therapy with supervening marked hyperglycemic accelerations as noted thereof. Her glucose values overnight have ranged from 133 to 256 and 209 mg/dL. It was 456 to over 500 at bedtime last night. Her IV steroids are being tapered down accordingly as noted. We will modify once again her basal and bolus insulin regimen to optimize metabolic control. We will lower the basal insulin to 24 units subcutaneous at bedtime daily, to start tonight. We will also continue the low dose correction scale using Novolog insulin as given, to obviate hypoglycemia. We will continue the Amaryl given as 4 mg b.i.d. before meals as given. Moreover, we will lower also her Novolog given with meals to 14 units subcutaneous t.i.d. before meals, to start at dinner time today as ordered. We will obtain serial chemistries and supplement accordingly as needed. We will follow. Yary Pendleton MD
--- NOTE | 2018-03-01 20:46 | PN ---
DATE: 03/01/2017 SUBJECTIVE: The patient is comfortable. She denies any chest pain or shortness of breath at this time. She is still experiencing cough. PHYSICAL EXAMINATION: VITAL SIGNS: Blood pressure 126/66, heart rate 75, temperature 98.3, respirations 20. HEENT: Normocephalic. CHEST: Bilateral rhonchi. HEART: S1 and S2 regular. ABDOMEN: Soft. EXTREMITIES: 1 to 2+ pitting edema. LABORATORY DATA: Today's SMA-7: Sodium 131, potassium 3.7, chloride 95, CO2 30, glucose 90, BUN 8, creatinine 2.3, calcium 7.9. Blood culture negative after 4 days. Urine culture, no growth. ASSESSMENT: 1. Right-sided heart failure. 2. Consider underlying chronic obstructive lung disease. 3. Worsening renal insufficiency. 4. Presumptive pneumonia. 5. Rule out sepsis. 6. Uncontrolled diabetes mellitus. 7. Borderline troponin elevation, consider non-ST elevation myocardial infarction. RECOMMENDATIONS: Continue current Amaryl 5 mg twice a day, aspirin 325 mg once a day, IV Rocephin 1 g daily, Cozaar 50 mg once a day, Coreg 3.125 mg twice a day, Crestor at 5 mg once a day, subcutaneous heparin 5000 units twice a day, hydrochlorothiazide 12.5 mg daily, Norvasc at 10 mg once a day, Plavix 75 mg once a day. Discontinue IV Lasix. Ryan Vidal MD
[2018-03-01] MEDS ORDERED: (Lantus) Insulin Glargine, Recombinant SC SCH ×3 (22:00)
[2018-03-02] MEDS ORDERED: Ergocalciferol 50,000 Intl Units Cap PO SCH (10:00)
--- NOTE | 2018-03-02 10:05 | PN ---
DATE: 02/28/2018 ENDOCRINOLOGY FOLLOW-UP NOTE. LOCATION: Room 564. SUBJECTIVE: This is a 77-year-old female with recent uncontrolled type 2 insulin-requiring diabetes, started on IV steroid therapy for acute excerebration of COPD with supervening hyperglycemic accelerations as transiently noted thereof. Her glucose levels overnight have ranged from 254 to 350 mg/dL, plus 344 at bedtime last night. LABORATORY DATA: Her chemistry showed BUN of 74, sodium 130, potassium 3.7, chloride 95, CO2 of 28, glucose 172, and creatinine 2.2. Her A1c is 8.6%, which was elevated and indicative of suboptimal metabolic control of her diabetic condition even prior to this admission. ASSESSMENT: This is a 77-year-old female with uncontrolled and decompensated type 2 insulin-requiring diabetes with persistent hyperglycemic accelerations suspected transiently with ___ intravenous steroid therapy with increased insulin resistance and further impaired glucose tolerance thereof. PLAN OF MANAGEMENT: We will modify once again her basal and bolus insulin regimen and increase the Novolog to 14 units three times daily before meals to start at lunchtime today as ordered. We will continue also the low dose correction scale using Novolog insulin to obviate hypoglycemia and detailed orders have been given. Moreover we will increase and titrate basal insulin with Lantus to be given as 24 units subcutaneously at bedtime daily as given. We will obtain serial chemistries and supplement accordingly as needed. We will follow and advise accordingly. Yary Pendleton MD
== END 2018-03-01 17:20 | disposition home health service (06) | DRG 637 ==
LOC: C.ER 14:23 → C.9E 16:19 → C.5S 17:53
PROVIDERS: ADMIT Internal Medicine Nephrology; ATTEND Internal Medicine Nephrology
DX: E11.649 Type 2 diabetes mellitus with hypoglycemia without coma (principal); I21.4 Non-ST elevation (NSTEMI) myocardial infarction; J18.9 Pneumonia, unspecified organism; E87.1 Hypo-osmolality and hyponatremia; I13.0 Hypertensive heart and chronic kidney disease with heart failure and stage 1 through stage 4 chronic kidney disease, or unspecified chronic kidney disease; J44.1 Chronic obstructive pulmonary disease with (acute) exacerbation; J44.0 Chronic obstructive pulmonary disease with (acute) lower respiratory infection; E11.22 Type 2 diabetes mellitus with diabetic chronic kidney disease; I25.10 Atherosclerotic heart disease of native coronary artery without angina pectoris; N18.9 Chronic kidney disease, unspecified; E11.51 Type 2 diabetes mellitus with diabetic peripheral angiopathy without gangrene; I27.20 Pulmonary hypertension, unspecified; I44.7 Left bundle-branch block, unspecified; E11.65 Type 2 diabetes mellitus with hyperglycemia; I50.810 Right heart failure, unspecified; E11.42 Type 2 diabetes mellitus with diabetic polyneuropathy; E11.21 Type 2 diabetes mellitus with diabetic nephropathy; E11.319 Type 2 diabetes mellitus with unspecified diabetic retinopathy without macular edema; E78.5 Hyperlipidemia, unspecified; H54.7 Unspecified visual loss; Z87.01 Personal history of pneumonia (recurrent); Z79.4 Long term (current) use of insulin; Z87.442 Personal history of urinary calculi; Z90.49 Acquired absence of other specified parts of digestive tract; Z98.51 Tubal ligation status